=== PATIENT | female | born 1960 | race Caucasian/White ===

== ENCOUNTER 2021-10-06 07:38 | Emergency (ER) | payer MEDICARE, MEDICAID, SELFPAY ==
[2021-10-06 07:47] VITALS: BP 162/83; PULSE 103; RESP 18; O2SAT 99; BMI 20.9
--- NOTE | 2021-10-06 07:52 | XR_ITS ---
WS: [id number] LEFT ANKLE: 3 VIEW(S) TECHNIQUE: AP, oblique(s) and lateral. HISTORY: ankle pain, fell 2 weeks ago. COMPARISON: None available. Healing fracture in the distal fibular diaphysis. Nondisplaced fracture with a moderate amount of neris thomas formation developing. No significant displacement. No joint effusion or widening of the ankle mortise. Moderate degenerative changes at the ankle joint. Hypertrophic osteophytes at the medial and lateral joint compartments with narrowing of the joint space. There is also narrowing of the subtalar joint a nd mild pes planus deformity. XR/XR ankle LT min 3V* [id number] IMPRESSION: 1. Healing nondisplaced oblique fracture distal fibular diaphysis. 2. 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
[2021-10-06 08:05] VITALS: BP 162/83; O2SAT 97
[2021-10-06 08:45] VITALS: BP 137/77; PULSE 102; RESP 20; O2SAT 94
--- NOTE | 2021-10-06 08:47 | W.ED.EXTPRO ---
HPI - Extremity Problem General: Chief complaint: Extremity Injury, Lower Stated complaint: Left Ankle injury Time Seen by Provider: 10/06/21 07:40 Source: patient Mode of arrival: ambulatory Limitations: no limitations History of Present Illness: 59-year-old female presents emergency room complaining of left lateral ankle pain. Evidently she hurt her self at least 2 weeks ago or more. She has been ambulatory on it since she states a significant amount of pain. She has not seen anyone else for it. No other injuries. Patient denies previous injury to this ankle. MD Complaint: extremity pain Onset (ago): week(s) (2) Pain Consistency: constant Location: left and lower extremity (Ankle) Quality: sharp Radiation: distal Relieving factors: immobilization and rest Exacerbating factors: weight bearing and walking Associated symptoms: Reports chest pain (Chronically); Deny arthralgias, fever(s), myalgias, rash or short of breath Review of Systems General: Reports: Other (Verbose review of systems on chronic issues) Const: Denies: fever(s) or chills ENMT: Denies: throat pain, ear or mastoid pain, nasal discharge or nasal congestion Card: Reports: chest pain (Chronically) and palpitations Resp: Reports: dyspnea (Chronic); Denies: productive cough or non-productive cough GI: Denies: abdominal pain, nausea, vomiting, hematemesis, coffee ground emesis, diarrhea, constipation, bloating, hematochezia or melena : Denies: flank pain, difficulty voiding, dysuria, urinary frequency or urinary urgency Musc: Reports: neck pain, back pain, extremity pain and joint pain Skin/Breast: Denies: rash or pruritus [facility] ED PFSH: Medical History (Updated 10/13/21 @ 15:02 by Zheng Heredia DO) Patient denies significant medical history Surgical History (Updated 10/13/21 @ 15:02 by Zheng Heredia DO) No pertinent past surgical history Physical Exam Const: GENERAL APPEARANCE: cooperative and comfortable ORIENTATION/CONSCIOUSNESS: Yes awake, Yes oriented to person, Yes oriented to place and Yes oriented to time HENMT: COMMON NORMALS: normocephalic, atraumatic and hearing grossly normal bilaterally HEAD & SCALP: normocephalic and atraumatic Resp: COMMON NORMALS: normal respiratory effort, No retractions, No use of accessory muscles and clear to auscultation bilaterally AUSCULTATION: clear to auscultation bilaterally Cardio: COMMON NORMALS: regular rate, regular rhythm and No murmurs present (Cardio) RATE: regular rate RHYTHM: regular rhythm GI: COMMON NORMALS: Soft to palpation and No hepatosplenomegaly present AUSCULTATION: Yes normoactive bowel sounds PALPATION: Yes Soft to palpation, No Tenderness to palpation present (GI), No Guarding due to palpation present (GI) and Yes No hepatosplenomegaly present Extremity: OTHER: Slight ecchymosis and swelling of the lateral malleolus left ankle Neuro: SENSORIUM/ORIENTATION: Yes oriented to person, Yes oriented to place and Yes oriented to time Skin: COMMON NORMALS: no rashes or lesions noted GENERAL SKIN EXAM: no rashes or lesions noted Course Vital Signs: Vital signs: Vital Signs Pulse Rate 102 H 10/06/21 08:45 Respiratory Rate 20 H 10/06/21 08:45 Blood Pressure 137/77 10/06/21 08:45 Pulse Oximetry 94 10/06/21 08:45 MDM - Extremity (Nontraumatic) Medical Decision Making Left distal fibula fracture. Posterior splint nonweightbearing pain medications referral to orthopedics Lab Data I reviewed the patient's lab results. Labs and imaging reviewed Radiology Impressions Ankle X-Ray 10/06/21 07:52 IMPRESSION: 1. Healing nondisplaced oblique fracture distal fibular diaphysis. 2. 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 Discharge Plan Discharge Patient Disposition: Home Clinical Impression: Fracture of distal end of left fibula with routine healing Condition: Stable Prescriptions: New hydrocodone-acetaminophen 5-325 mg tablet 1 tab PO Q6H PRN (Reason: pain) Qty: 10 0RF Discharge Orders: Discharge ED (Routine); Ordered 10/06/21 Ordered By: Zheng Heredia Patient Instructions: Opioid Safety Activity Restrictions/Additional Instructions: This management will make referral to orthopedics and contact you the time for the appointment. Coding Level of Care Code ED Physiotherapy Assistant for Shanita Fwlamonte Exam Detailed
--- NOTE | 2021-10-06 14:24 | DCPLANNER ---
brood station manager had message to speak with patient about getting established with a primary care physician. brood station manager called patient, unable to speak with patient, a voicemail was left for patient to return case mgr phone call.
== END 2021-10-06 08:48 | disposition home or self-care (01) ==
PROVIDERS: Emergency Provider Family Medicine
DX: S82.435A Nondisplaced oblique fracture of shaft of left fibula, initial encounter for closed fracture (principal); X58.XXXA Exposure to other specified factors, initial encounter
CPT/HCPCS: 29515; 73610; 99283; E0114

== ENCOUNTER 2021-11-24 22:23 | Emergency (ER) | payer MEDICARE, MEDICAID, SELFPAY ==
[2021-11-24 22:29] VITALS: BP 175/84; PULSE 92; TEMP 37.1; O2SAT 99; BMI 23.5
--- NOTE | 2021-11-24 23:02 | CTR_ITS ---
PROCEDURE INFORMATION: Exam: CT Abdomen And Pelvis Without Contrast Exam date and time: 11/24/2021 11:20 PM Age: 61 years old Clinical indication: Bloating; Abdominal pain; Generalized; Prior surgery; Surgery type: Hysterectomy; Patient HX: C/O diffuse abd pain with distention. History of sbo. ; Additional info: Abd pain distension TECHNIQUE: Imaging protocol: Computed tomography of the abdomen and pelvis without contrast. Radiation optimization: All CT scans at this facility use at least one of these dose optimization techniques: automated exposure control; mA and/or kV adjustment per patient size (includes targeted exams where dose is matched to clinical indication); or iterative reconstruction. COMPARISON: No relevant prior studies available. RADIATION DOSE METRICS: Total DLP (mGy-cm): 984.75 FINDINGS: Liver: Normal. No mass. Gallbladder and bile ducts: Normal. No calcified stones. No ductal dilation. Pancreas: Normal. No ductal dilation. Spleen: Normal. No splenomegaly. Adrenal glands: Normal. No mass. Kidneys and ureters: Normal. No hydronephrosis. Stomach and bowel: Diverticulosis coli. Negative for bowel obstruction. Negative for bowel perforation. Moderate colonic fecal volume. No focal bowel wall inflammatory change. Appendix: Normal appendix. Intraperitoneal space: Unremarkable. No free air. No significant fluid collection. Vasculature: Diffuse abdominal aorta atherosclerosis. Negative for aneurysm. Lymph nodes: Unremarkable. No enlarged lymph nodes. Urinary bladder: Unremarkable as visualized. Reproductive: Hysterectomy. Bones/joints: Unremarkable. No acute fracture. Soft tissues: Unremarkable. CT/CT abdomen pelvis con [id number] IMPRESSION: Negative for acute abdominopelvic pathology.
[2021-11-24 23:23] LABS: Basophils % 0.3 %; Eosinophils # 0.1 10^3/uL (0.0-0.8); Eosinophils % 1.3 %; Hematocrit 34.2 % (37.0-47.0); Hemoglobin 11.4 g/dL (11.5-15.3); Lymphocytes % 34.5 %; Mean Corpuscular HGB Conc 33.3 g/dL (30.0-36.0); Mean Corpuscular Volume 99.1 fl (81-99); Monocytes # 0.9 10^3/uL (0.2-0.9); Monocytes % 10.6 %; Neutrophils # 4.54 10^3/uL (1.8-7.7); Nucleated Red Blood Cells % 0 %; Platelet Count 355 10^3/cmm (130-400); Red Blood Count 3.45 10^6/uL (4.1-5.3); Red Cell Distribution Width 11.9 % (12.1-15.1); White Blood Count 8.6 10^3/uL (4.0-10.0)
[2021-11-24 23:32] LABS: Alanine Aminotransferase 11 U/L (0-33); Albumin Level 4.4 g/dL (3.5-5.2); Alkaline Phosphatase 95 IU/L (35-105); Anion Gap 14.3 (5-19); Aspartate Amino Transferase 14 U/L (0-32); Blood Urea Nitrogen 6 mg/dL (8-23); Calcium 9.1 mg/dL (8.5-10.5); Carbon Dioxide 25 mmol/L (22-29); Chloride 100 mmol/L (98-107); Globulin 2.7 g/dL (1.3-4.6); Glomerular Filtration Rate 84.8 mL/min (90-130); Glucose 82 mg/dL (65-115); Lipase 57 U/L (13-60); Osmolality Calculated 279 mOsm/kg (285-295); Potassium 3.3 mmol/L (3.5-5.1); Sodium 136 mmol/L (136-145); Total Bilirubin 0.2 mg/dL (0.15-1.2); Total Protein 7.1 g/dL (6.6-8.7)
[2021-11-25 00:05] VITALS: BP 165/96; PULSE 94; RESP 20; O2SAT 98
[2021-11-25] MEDS: morphine 4 mg/mL SDV 1 mL IVP ×2 (00:05→01:43)
[2021-11-25] MEDS: sodium chloride 0.9% 1,000 ML 999 ML IV (00:05)
[2021-11-25] MEDS: ondansetron 2 mg/ML SDV 2 mL 4 MG IVP (00:06)
[2021-11-25 00:53] LABS: Add Urine Microscopic? NO; Charge for UA Resulting for Rev
[2021-11-25 00:55] LABS: Bilirubin Urine Neg (Negative); Blood Urine Neg (Negative); Glucose Urine UA Norm (Normal); Ketones Urine Negative (Negative); Leukocyte Esterase Urine Negative (Negative); Nitrate Urine Negative (Negative); Protein Urine Neg (Negative); Specific Gravity, Urine 1.005 (1.005-1.030); Urine Appearance Clear (CLEAR); Urine Color Straw (Yellow); Urobilinogen Urine Norm (Negative); pH Urine 6 (5-7)
[2021-11-25 01:43] VITALS: RESP 18
[2021-11-25] MEDS: magnesium citrate Btl 296 mL PO (01:52)
[2021-11-25 02:08] VITALS: BP 121/60; PULSE 74; RESP 18; TEMP 36.7; O2SAT 97
--- NOTE | 2021-11-25 05:08 | W.ED.ABDPA2 ---
HPI - Abdominal Pain General: Chief Complaint: Abdominal Pain Stated Complaint: ABD PAIN Time Seen by Provider: 11/24/21 22:38 Source: patient History of Present Illness: 61-year-old female with a history of chronic abdominal pain. She presents with abdominal pain and distention. She noted at 1 point that fentanyl seems to really help her pain when she gets like this. She has had feces in times past. She denies significant vomiting, denies fever, denies significant diarrhea. MD elicited complaint: abdominal pain Pertinent past history: constipation Onset (ago): month(s) Pain Consistency: intermittent Location: Diffuse Severity: moderate Quality: cramping, stabbing and aching Associated Symptoms: Reports bloating, constipation, nausea and poor appetite; Denies dysuria, fever(s), melena and vomiting Review of Systems Const: Denies: fever(s) ENMT: Denies: throat pain Card: Denies: chest pain Resp: Denies: dyspnea or productive cough GI: Reports: nausea, constipation and bloating; Denies: vomiting or melena : Denies: dysuria PFSH ED PFSH: Medical History (Updated 11/25/21 @ 01:27 by Celestino Fish DO) Patient denies significant medical history Surgical History No pertinent past surgical history Physical Exam Const: COMMON NORMALS: no acute distress GENERAL APPEARANCE: cooperative HENMT: COMMON NORMALS: normocephalic, atraumatic and Normal external nose present HEAD & SCALP: normocephalic and atraumatic NOSE: Normal external nose present and Normal nares present Eye: COMMON NORMALS: Equal, round and reactive pupils present and EOMs intact bilaterally PUPIL: Yes Equal, round and reactive pupils present Neck/C-Spine: GENERAL: Yes trachea midline Chest: COMMONS NORMALS: normal inspection of the chest Resp: COMMON NORMALS: normal respiratory effort, No use of accessory muscles and clear to auscultation bilaterally AUSCULTATION: clear to auscultation bilaterally Cardio: COMMON NORMALS: regular rate and regular rhythm RATE: regular rate RHYTHM: regular rhythm GI: COMMON NORMALS: Soft to palpation INSPECTION: Yes abdominal distension (mild) PALPATION: Yes Soft to palpation, Yes Tenderness to palpation present (GI) (diffuse) and No Guarding due to palpation present (GI) Extremity: COMMON NORMALS: no pedal edema Neuro: JOSE DE JESUS COMA SCALE: document GCS findings [place] coma scale eye opening: Spontaneous [place] coma scale verbal response: Orientated [place] coma scale motor response: Obey commands Jose De Jesus coma scale total score: 15 Course Vital Signs: Vital signs: Vital Signs Temperature 98.1 F 11/25/21 02:08 Pulse Rate 74 11/25/21 02:08 Respiratory Rate 18 11/25/21 02:08 Blood Pressure 121/60 11/25/21 02:08 Pulse Oximetry 97 11/25/21 02:08 MDM - Abdominal Pain Medical Decision Making No fever, no leukocytosis. Hemoglobin is 11.4. Other labs are benign. CT is negative for any acute abdominal pelvic pathology. She does have an increased fecal load. She will be prescribed laxative Lab Data : 11/24/21 22:50 11/24/21 22:50 Labs/Radiology: Radiology Impressions Abdomen/Pelvis CT 11/24/21 23:02 IMPRESSION: Negative for acute abdominopelvic pathology. Laboratory Results WBC 8.6 10^3/uL (4.0-10.0) 11/24/21 22:50 RBC 3.45 10^6/uL (4.1-5.3) L 11/24/21 22:50 Hgb 11.4 g/dL (11.5-15.3) L 11/24/21 22:50 Hct 34.2 % (37.0-47.0) L 11/24/21 22:50 MCV 99.1 fl (81-99) H 11/24/21 22:50 MCH 33.0 pg (28.0-34.0) 11/24/21 22:50 MCHC 33.3 g/dL (30.0-36.0) 11/24/21 22:50 RDW 11.9 % (12.1-15.1) L 11/24/21 22:50 Plt Count 355 10^3/cmm (130-400) 11/24/21 22:50 MPV 10.0 fL (7.4-10.4) 11/24/21 22:50 Neut % (Auto) 53.0 % 11/24/21 22:50 Lymph % (Auto) 34.5 % 11/24/21 22:50 Robertson % (Auto) 10.6 % 11/24/21 22:50 Eos % (Auto) 1.3 % 11/24/21 22:50 Baso % (Auto) 0.3 % 11/24/21 22:50 Neut # (Auto) 4.54 10^3/uL (1.8-7.7) 11/24/21 22:50 Lymph # (Auto) 3.0 10^3/uL (0.8-4.8) 11/24/21 22:50 Robertson # (Auto) 0.9 10^3/uL (0.2-0.9) 11/24/21 22:50 Eos # (Auto) 0.1 10^3/uL (0.0-0.8) 11/24/21 22:50 Baso # (Auto) 0.0 10^3/uL (0.0-0.1) 11/24/21 22:50 Nucleated RBC % (auto) 0 % 11/24/21 22:50 Nucleated RBCs # 0.0 /100WBC 11/24/21 22:50 Sodium 136 mmol/L (136-145) 11/24/21 22:50 Potassium 3.3 mmol/L (3.5-5.1) L 11/24/21 22:50 Chloride 100 mmol/L (98-107) 11/24/21 22:50 Carbon Dioxide 25 mmol/L (22-29) 11/24/21 22:50 Anion Gap 14.3 (5-19) 11/24/21 22:50 BUN 6 mg/dL (8-23) L 11/24/21 22:50 Creatinine 0.7 mg/dL (0.5-0.9) 11/24/21 22:50 GFR Calculation 84.8 mL/min (90-130) L 11/24/21 22:50 Glucose 82 mg/dL (65-115) 11/24/21 22:50 Calculated Osmolality 279 mOsm/kg (285-295) L 11/24/21 22:50 Calcium 9.1 mg/dL (8.5-10.5) 11/24/21 22:50 Total Bilirubin 0.2 mg/dL (0.15-1.2) 11/24/21 22:50 AST 14 U/L (0-32) 11/24/21 22:50 ALT 11 U/L (0-33) 11/24/21 22:50 Alkaline Phosphatase 95 IU/L (35-105) 11/24/21 22:50 C-Reactive Protein 3.0 mg/L (0.0-4.9) 11/24/21 22:50 Total Protein 7.1 g/dL (6.6-8.7) 11/24/21 22:50 Albumin 4.4 g/dL (3.5-5.2) 11/24/21 22:50 Globulin 2.7 g/dL (1.3-4.6) 11/24/21 22:50 Lipase 57 U/L (13-60) 11/24/21 22:50 Urine Color Straw (Yellow) 11/25/21 00:30 Urine Appearance Clear (CLEAR) 11/25/21 00:30 Urine pH 6 (5-7) 11/25/21 00:30 Ur Specific [place] 1.005 (1.005-1.030) 11/25/21 00:30 Urine Protein Neg (Negative) 11/25/21 00:30 Urine Glucose (UA) Norm (Normal) 11/25/21 00:30 Urine Ketones Negative (Negative) 11/25/21 00:30 Urine Blood Neg (Negative) 11/25/21 00:30 Urine Nitrate Negative (Negative) 11/25/21 00:30 Urine Bilirubin Neg (Negative) 11/25/21 00:30 Urine Urobilinogen Norm mg/dL (Negative) 11/25/21 00:30 Ur Leukocyte Esterase Negative (Negative) 11/25/21 00:30 Discharge Plan Discharge Patient Disposition: Home Clinical Impression: Constipation Abdominal pain Qualifiers: Abdominal location: generalized Qualified Code(s): R10.84 - Generalized abdominal pain Condition: Stable Prescriptions: Discontinued hydrocodone-acetaminophen 5-325 mg tablet 1 tab PO Q6H PRN (Reason: pain) Qty: 10 0RF Discharge Orders: Discharge ED (Routine); Ordered 11/25/21 Ordered By: Celestino Fish Patient Instructions: Constipation (ED), Abdominal Pain (ED), Opioid Safety Activity Restrictions/Additional Instructions: Take the medication you were dispensed from the ER. Return for fever, vomiting liquids, other concerning symptoms. Coding Level of Care Code ED Automotive Design Layout Drafter for Shanita Danielle
--- NOTE | 2021-12-22 16:44 | DCPLANNER ---
late entry - patient case coordinator had message to speak with patient about getting established with a primary care physician. airport operations duty manager unable to speak with patient at this time.
== END 2021-11-25 02:10 | disposition home or self-care (01) ==
PROVIDERS: Emergency Provider Emergency Medicine
DX: R10.84 Generalized abdominal pain (principal); K59.00 Constipation, unspecified
CPT/HCPCS: 74176; 80053; 81003; 83690; 85025; 86140; 96361; 96374; 96375; 96376; 99284; J2270; J2405; J7030

== ENCOUNTER 2021-12-26 12:27 | Emergency (ER) | payer MEDICARE, SELFPAY ==
[2021-12-26 12:52] VITALS: BP 118/62; PULSE 91; RESP 16; TEMP 36.7; O2SAT 91
--- NOTE | 2021-12-26 13:14 | PC.PHAR ---
pt unable to verify medications-medications entered are meds that [facility] states they have filled for the pt recently-[facility] states the pt picked up all medications-notes are made in the pharmacy comments with last fill dates and d/s
--- NOTE | 2021-12-26 13:15 | XR_ITS ---
WS: [id number] XR chest 1V portable [id number] REASON FOR EXAM: dyspnea/cough FINDINGS: Calcification of the thoracic aorta without aneurysmal dilatation. Normal heart size. Calcified granulomatous disease bilaterally. Flattening of the hemidiaphragms and mild prominence of the interstitium throughout both lungs. Compared to the examination of 12/25/2021 there is an area of atelectasis in the left lung base. The l ungs are otherwise unchanged compared to the previous study. Again is noted the right ventricular fracture of unknown chronicity. XR/XR chest 1V portable [id number] IMPRESSION: Interval atelectasis in the left lower lung with no other interval change chayo red to 12/25/2021.
--- NOTE | 2021-12-26 13:15 | CT_ITS ---
WS: [id number] CT HEAD TECHNIQUE: Noncontrast CT of the head obtained from the skullbase to the vertex. CLINICAL INFORMATION: AMS COMPARISON: December 25, 2021 DLP: 1189.[address] scans at [facility] use at least one of these dose optimization techniques: automated e xposure control; mA and/or kV adjustment per patient size (includes targeted exams where dose is matc hed to clinical indication); or iterative reconstruction. FINDINGS: No evidence of intracranial hemorrhage or mass effect. Ventricular system and basal cisterns are peres nt. Mild small vessel changes with mild parenchymal volume loss. No extra-axial fluid collections. No evidence of mass or mass effect. Mild mucosal thickening ethmoid air cells. Mastoid air cells well aerated. CT/CT head wo con* [id number] IMPRESSION: 1. No evidence of intracranial hemorrhage or mass effect. 2. Mild small vessel changes. Mild parenchymal volume loss. 3. No acute intracranial findings.
[2021-12-26 14:54] LABS: Basophils % 0.3 %; Eosinophils # 0.2 10^3/uL (0.0-0.8); Eosinophils % 2.8 %; Hematocrit 31.1 % (37.0-47.0); Lymphocytes # 1.8 10^3/uL (0.8-4.8); Lymphocytes % 22.7 %; Mean Corpuscular HGB Conc 32.2 g/dL (30.0-36.0); Mean Corpuscular Hemoglobin 33.8 pg (28.0-34.0); Mean Corpuscular Volume 105.1 fl (81-99); Mean Platelet Volume 8.8 fL (7.4-10.4); Monocytes % 12.5 %; Neutrophils % 61.3 %; Nucleated Red Blood Cells % 0 %; Platelet Count 304 10^3/cmm (130-400); Red Blood Count 2.96 10^6/uL (4.1-5.3); Red Cell Distribution Width 12.4 % (12.1-15.1)
--- NOTE | 2021-12-26 14:56 | ED_ITS ---
HPI - Altered Mental Status General: Chief Complaint: Altered Mental Status Stated Complaint: AMS Time Seen by Provider: 12/26/21 13:13 Source: patient Mode of arrival: ambulatory Limitations: no limitations History of Present Illness: 59-year-old female presents to the emergency room with altered mental status. EMS was called to [facility] out reach for altered mental status. On arrival she is lethargic but was eating. When I came to see her she is awake and answers questions. Her glucose on their arrival there was 69 and I gave her some oral glucose increased to 130. When I came to see her s he is still somewhat lethargic she tells me she took Benadryl this afternoon to help her sleep she cannot tell me how much he took. She denies use of any drugs or alcohol. MD complaint: altered mental status Onset (ago): unknown Severity: moderate Associated symptoms: Deny auditory hallucinations, visual hallucinations, delusions or racing thoughts Treatments prior to arrival: glucose Review of Systems Const: Denies: fever(s), chills, body aches, change in appetite, fatigue or malaise ENMT: Denies: throat pain, ear or mastoid pain, nasal discharge or nasal congestion Card: Denies: chest pain, edema, dyspnea on exertion or orthopnea Resp: Denies: dyspnea, productive cough or non-productive cough GI: Denies: abdominal pain, nausea, vomiting, hematemesis, coffee ground emesis, diarrhea, constipation, bloating, hematochezia or melena : Denies: flank pain, difficulty voiding, dysuria, urinary frequency or urinary urgency Skin/Breast: Denies: rash or pruritus Psych: Denies: visual hallucinations or auditory hallucinations [facility] ED PFSH: Medical History Patient denies significant medical history Surgical History No pertinent past surgical history Social History Smoking and tobacco status: unknown if ever smoked Alcohol intake: unknown Physical Exam Const: COMMON NORMALS: no acute distress and average body habitus GENERAL APPEARANCE: lethargic NUTRITIONAL APPEARANCE: obese ORIENTATION/CONSCIOUSNESS: Yes awake and Yes lethargic HENMT: COMMON NORMALS: normocephalic, atraumatic, external ears normal, TM's normal bilaterally and Normal external nose present HEAD & SCALP: normal to inspection, normocephalic and atraumatic FACE & SINUS: normal facial exam NOSE: Normal external nose present and Normal nares present GENERAL EAR: hearing grossly impaired EXTERNAL EAR: Yes external ears normal and Yes external ear abnormal TYMPANIC MEMBRANE: TM's normal bilaterally MOUTH: Normal oral and palatal mucosa present, lip normal and tongue normal Eye: COMMON NORMALS: Equal, round and reactive pupils present, EOMs intact bilaterally and conjunctivae normal CONJUNCTIVA: Yes conjunctivae normal PUPIL: Yes Equal, round and reactive pupils present and Yes Pupil accommodation reflex normal Neck/C-Spine: COMMON NORMALS: full ROM, no lymphadenopathy, supple and no meningeal signs Resp: COMMON NORMALS: clear to auscultation bilaterally EFFORT & INSPECTION: Yes able to speak in complete sentences AUSCULTATION: clear to auscultation bilaterally Cardio: COMMON NORMALS: regular rate and regular rhythm RATE: regular rate RHYTHM: regular rhythm GI: COMMON NORMALS: Normal to inspection, nondistended, normoactive bowel sounds present, Soft to palpation, non-tender and No hepatosplenomegaly present PALPATION: Yes Soft to palpation, No Guarding due to palpation present (GI) and Yes No hepatosplenomegaly present : COMMON NORMALS: Yes no CVA tenderness BLADDER/KIDNEY EXAM: Yes no CVA tenderness Back/Pelvis: COMMON NORMALS: no CVA tenderness Neuro: SENSORIUM/ORIENTATION: Yes lethargic MENINGEAL SIGNS: Yes no meningeal signs Psych: THOUGHT CONTENT: No delusions Course Vital Signs: Vital signs: Vital Signs Temperature 98.0 F 12/26/21 12:52 Pulse Rate 108 H 12/26/21 16:35 Respiratory Rate 16 12/26/21 16:35 Blood Pressure 110/78 12/26/21 16:35 Pulse Oximetry 97 12/26/21 16:35 MDM - Altered Mental Status Medical Decision Making Positive for benzodiazepines and narcotics. Patient admits to taking benzos as well as taking Benadryl along with it. She is awake and alert at this point is able to ambulate we will go ahead and discharge home encouraged her not to take any [id number] or nonprescribed medications particularly when she is taking prescribed prescription meds. Medical Records I reviewed the patient's medical records. Lab Data I reviewed the patient's lab results. : 12/26/21 14:35 12/26/21 14:35 Radiology Impressions Chest X-Ray 12/26/21 13:15 IMPRESSION: Interval atelectasis in the left lower lung with no other interval change compared to 12/25/2021. Head CT 12/26/21 13:15 IMPRESSION: 1. No evidence of intracranial hemorrhage or mass effect. 2. Mild small vessel changes. Mild parenchymal volume loss. 3. No acute intracranial findings. Laboratory Results WBC 8.0 10^3/uL (4.0-10.0) 12/26/21 14:35 RBC 2.96 10^6/uL (4.1-5.3) L 12/26/21 14:35 Hgb 10.0 g/dL (11.5-15.3) L 12/26/21 14:35 Hct 31.1 % (37.0-47.0) L 12/26/21 14:35 MCV 105.1 fl (81-99) H D 12/26/21 14:35 MCH 33.8 pg (28.0-34.0) 12/26/21 14:35 MCHC 32.2 g/dL (30.0-36.0) D 12/26/21 14:35 RDW 12.4 % (12.1-15.1) 12/26/21 14:35 Plt Count 304 10^3/cmm (130-400) 12/26/21 14:35 MPV 8.8 fL (7.4-10.4) 12/26/21 14:35 Neut % (Auto) 61.3 % 12/26/21 14:35 Lymph % (Auto) 22.7 % 12/26/21 14:35 [place] % (Auto) 12.5 % 12/26/21 14:35 Eos % (Auto) 2.8 % 12/26/21 14:35 Baso % (Auto) 0.3 % 12/26/21 14:35 Neut # (Auto) 4.90 10^3/uL (1.8-7.7) 12/26/21 14:35 Lymph # (Auto) 1.8 10^3/uL (0.8-4.8) 12/26/21 14:35 [place] # (Auto) 1.0 10^3/uL (0.2-0.9) H 12/26/21 14:35 Eos # (Auto) 0.2 10^3/uL (0.0-0.8) 12/26/21 14:35 Baso # (Auto) 0.0 10^3/uL (0.0-0.1) 12/26/21 14:35 Nucleated RBC % (auto) 0 % 12/26/21 14:35 Nucleated RBCs # 0.0 /100WBC 12/26/21 14:35 Sodium 135 mmol/L (136-145) L 12/26/21 14:35 Potassium 4.1 mmol/L (3.5-5.1) 12/26/21 14:35 Chloride 97 mmol/L (98-107) L 12/26/21 14:35 Carbon Dioxide 30 mmol/L (22-29) H 12/26/21 14:35 Anion Gap 12.1 (5-19) 12/26/21 14:35 BUN 11 mg/dL (8-23) 12/26/21 14:35 Creatinine 0.6 mg/dL (0.5-0.9) 12/26/21 14:35 GFR Calculation 101.3 mL/min (90-130) 12/26/21 14:35 Glucose 72 mg/dL (65-115) 12/26/21 14:35 Calculated Osmolality 278 mOsm/kg (285-295) L 12/26/21 14:35 Lactic Acid 1.3 mmol/L (0.5-2.2) 12/26/21 14:35 Calcium 8.8 mg/dL (8.5-10.5) 12/26/21 14:35 Total Bilirubin 0.2 mg/dL (0.15-1.2) 12/26/21 14:35 AST 20 U/L (0-32) 12/26/21 14:35 ALT 15 U/L (0-33) 12/26/21 14:35 Alkaline Phosphatase 89 IU/L (35-105) 12/26/21 14:35 Total Protein 6.4 g/dL (6.6-8.7) L 12/26/21 14:35 Albumin 4.1 g/dL (3.5-5.2) 12/26/21 14:35 Globulin 2.3 g/dL (1.3-4.6) 12/26/21 14:35 Urine Color Yellow (Yellow) 12/26/21 14:50 Urine Appearance Clear (CLEAR) 12/26/21 14:50 Urine pH 6 (5-7) 12/26/21 14:50 Ur Specific [place] 1.010 (1.005-1.030) 12/26/21 14:50 Urine Protein Neg (Negative) 12/26/21 14:50 Urine Glucose (UA) Norm (Normal) 12/26/21 14:50 Urine Ketones Negative (Negative) 12/26/21 14:50 Urine Blood Neg (Negative) 12/26/21 14:50 Urine Nitrate Negative (Negative) 12/26/21 14:50 Urine Bilirubin Neg (Negative) 12/26/21 14:50 Urine Urobilinogen Norm mg/dL (Negative) 12/26/21 14:50 Ur Leukocyte Esterase Negative (Negative) 12/26/21 14:50 Urine Opiates Screen Positive ng/mL (Negative) H 12/26/21 14:50 Ur Barbiturates Screen Negative ng/mL (Negative) 12/26/21 14:50 Ur Phencyclidine Scrn Negative ng/mL (Negative) 12/26/21 14:50 Ur Amphetamines Screen Negative ng/mL (Negative) 12/26/21 14:50 U Benzodiazepines Scrn Positive ng/mL (Negative) H 12/26/21 14:50 Urine Cocaine Screen Negative ng/mL (Negative) 12/26/21 14:50 U Marijuana (THC) Screen Negative ng/mL (Negative) 12/26/21 14:50 Ethyl Alcohol < 10 mg/dL (0-10) 12/26/21 14:35 Serum Ketones Negative (Negative) 12/26/21 14:35 Discharge Plan Discharge Patient Disposition: Home Clinical Impression: Clavicle fracture, Fall, Medication side effects Condition: Stable Prescriptions: No Action cyclobenzaprine 10 mg tablet 10 mg PO BID 0RF prednisone 10 mg tablet 10 mg PO DAILY 0RF alprazolam 1 mg tablet 1 mg PO BID 0RF gabapentin 400 mg capsule 400 mg PO TID 0RF omeprazole 40 mg capsule,delayed release(DR/EC) 40 mg PO DAILY 0RF quetiapine 100 mg tablet 100 mg PO BID 0RF dicyclomine 20 mg tablet 20 mg PO BID 0RF promethazine 25 mg tablet 25 mg PO BID 0RF acetaminophen-codeine 300-60 mg tablet 1 tab PO Q6H PRN (Reason: Pain) 0RF albuterol sulfate 90 mcg/actuation HFA aerosol inhaler 1 puff INHALATION Q4H 0RF oxybutynin chloride 5 mg tablet 5 mg PO BEDTIME 0RF metoclopramide HCl 10 mg tablet 10 mg PO QID 0RF Rx Instructions: before meals and hs memantine 5 mg tablet 5 mg PO BID 0RF Spiriva with HandiHaler 18 mcg capsule, w/inhalation device 1 cap INHALATION DAILY 0RF duloxetine 30 mg capsule,delayed release(DR/EC) 30 mg PO BEDTIME 0RF losartan-hydrochlorothiazide 100-12.5 mg tablet 1 tab PO DAILY 0RF Discharge Orders: Discharge ED (Routine); Ordered 12/26/21 Ordered By: Zheng Heredia Patient Instructions: Opioid Safety Activity Restrictions/Additional Instructions: Take medications previously prescribed. Avoid taking medicines not prescribed or [id number] medications. Coding Level of Care Code ED Hot Top Liner for Shanita Fwlamonte Exam Comprehensive
[2021-12-26 14:58] LABS: Add Urine Microscopic? NO; Charge for UA Resulting for Rev
[2021-12-26 15:02] LABS: Urine Appearance Clear (CLEAR); Urine Color Yellow (Yellow); pH Urine 6 (5-7)
[2021-12-26 15:02] LABS: Ketone (Acetest) Serum Negative (Negative)
[2021-12-26 15:03] LABS: Lactic Sepsis W/Reflex 1.3 mmol/L (0.5-2.2)
[2021-12-26 15:03] LABS: Bilirubin Urine Neg (Negative); Blood Urine Neg (Negative); Glucose Urine UA Norm (Normal); Ketones Urine Negative (Negative); Leukocyte Esterase Urine Negative (Negative); Nitrate Urine Negative (Negative); Protein Urine Neg (Negative); Urobilinogen Urine Norm (Negative)
[2021-12-26 15:11] LABS: Amphetamines Screen Urine Negative (Negative); Barbiturates Screen Urine Negative (Negative); Benzodiazepines Screen Urine Positive (Negative); Cocaine Screen Urine Negative (Negative); Opiate Screen Urine Positive (Negative); PCP Screen Urine Negative (Negative); THC Screen Urine Negative (Negative)
[2021-12-26 15:15] LABS: Alanine Aminotransferase 15 U/L (0-33); Albumin Level 4.1 g/dL (3.5-5.2); Alkaline Phosphatase 89 IU/L (35-105); Anion Gap 12.1 (5-19); Aspartate Amino Transferase 20 U/L (0-32); Blood Urea Nitrogen 11 mg/dL (8-23); Calcium 8.8 mg/dL (8.5-10.5); Carbon Dioxide 30 mmol/L (22-29); Chloride 97 mmol/L (98-107); Globulin 2.3 g/dL (1.3-4.6); Glomerular Filtration Rate 101.3 mL/min (90-130); Glucose 72 mg/dL (65-115); Osmolality Calculated 278 mOsm/kg (285-295); Potassium 4.1 mmol/L (3.5-5.1); Sodium 135 mmol/L (136-145); Total Bilirubin 0.2 mg/dL (0.15-1.2); Total Protein 6.4 g/dL (6.6-8.7)
[2021-12-26 15:18] LABS: Alcohol Level < 10 mg/dL (0-10)
[2021-12-26 16:35] VITALS: BP 110/78; PULSE 108; RESP 16; O2SAT 97
== END 2021-12-26 16:36 | disposition home or self-care (01) ==
PROVIDERS: Emergency Provider Family Medicine
DX: T88.7XXA Unspecified adverse effect of drug or medicament, initial encounter (principal); T50.905A Adverse effect of unspecified drugs, medicaments and biological substances, initial encounter; S42.009A Fracture of unspecified part of unspecified clavicle, initial encounter for closed fracture; X58.XXXA Exposure to other specified factors, initial encounter
CPT/HCPCS: 36415; 70450; 71045; 80053; 80306; 80307; 81003; 82009; 83605; 85025; 87040; 87205; 99284

== ENCOUNTER 2021-12-28 07:10 | Inpatient (IN) | payer MEDICARE, SELFPAY ==
[2021-12-28] VITALS (76 sets, daily range): BP systolic 84–145; BP diastolic 48–88; PULSE 79–121; RESP 13–32; TEMP 36.6–37.7; O2SAT 90–99
--- NOTE | 2021-12-28 07:14 | ED_ITS ---
HPI - General Adult General: Stated complaint: AMS Time Seen by Provider: 12/28/21 07:13 PFSH ED PFSH: Medical History Patient denies significant medical history Surgical History No pertinent past surgical history Social History Smoking and tobacco status: unknown if ever smoked Alcohol intake: unknown Discharge Plan Discharge Condition: Stable Prescriptions: No Action cyclobenzaprine 10 mg tablet 10 mg PO BID 0RF prednisone 10 mg tablet 10 mg PO DAILY 0RF alprazolam 1 mg tablet 1 mg PO BID 0RF gabapentin 400 mg capsule 400 mg PO TID 0RF omeprazole 40 mg capsule,delayed release(DR/EC) 40 mg PO DAILY 0RF quetiapine 100 mg tablet 100 mg PO BID 0RF dicyclomine 20 mg tablet 20 mg PO BID 0RF promethazine 25 mg tablet 25 mg PO BID 0RF acetaminophen-codeine 300-60 mg tablet 1 tab PO Q6H PRN (Reason: Pain) 0RF albuterol sulfate 90 mcg/actuation HFA aerosol inhaler 1 puff INHALATION Q4H 0RF oxybutynin chloride 5 mg tablet 5 mg PO BEDTIME 0RF metoclopramide HCl 10 mg tablet 10 mg PO QID 0RF Rx Instructions: before meals and hs memantine 5 mg tablet 5 mg PO BID 0RF Spiriva with HandiHaler 18 mcg capsule, w/inhalation device 1 cap INHALATION DAILY 0RF duloxetine 30 mg capsule,delayed release(DR/EC) 30 mg PO BEDTIME 0RF losartan-hydrochlorothiazide 100-12.5 mg tablet 1 tab PO DAILY 0RF Coding Level of Care Code ED Respiratory Care Faculty for Shanita Danielle
--- NOTE | 2021-12-28 07:17 | XR_ITS ---
WS: [id number] XR chest 1V portable [id number] REASON FOR EXAM: dyspnea/cough FINDINGS: The heart and mediastinum are within normal limits. Extensive reticular interstitial and groundglass infiltrative changes in the right upper and right lo wer lobes. There may be early similar abnormality in the periphery of the left lower lung. In retrospect there may have been early findings in the right lower lung on 12/26/2021. No other new finding or interval change. XR/XR chest 1V portable [id number] IMPRESSION: Development of lung opacities between 718 in the current examination indicative of acute pneumonitis.
--- NOTE | 2021-12-28 07:18 | ECG_ITS ---
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 Measurements Intervals [place] Rate: 99 P: 70 MT: 144 QRS: 73 QRSD: 94 T: 67 QT: 340 QTc: 438 Interpretive Statements SINUS RHYTHM INTERPRETATION BASED ON A DEFAULT AGE OF 40 YEARS Compared to ECG 12/25/2021 23:47:04 No significant changes Electronically Signed On 12-28-2021 21:14:13 CDT by Misha Moe M.D. [id number]
[2021-12-28] MEDS: sodium chloride 0.9% 1,000 ML 999 ML IV (07:25)
--- NOTE | 2021-12-28 07:25 | W.ED.SOB ---
HPI - SOB/Dyspnea General: Chief Complaint: Altered Mental Status Stated Complaint: AMS Time Seen by Provider: 12/28/21 07:13 Source: EMS Mode of arrival: EMS Limitations: altered mental status History of Present Illness: HPI Narrative: 61-year-old female arrives emergency room with altered mental status with a GCS of 6 oxygen saturation of 75%. Patient has abnormal respiratory pattern. Patient is unable to give any significant history. She is found that [facility] home in this condition evidently has been that way all night we do not have a timeframe of last known well. She was seen 2 days ago here with altered mental status secondary to narcotics use and ultimately she was discharged home. Recently patient was seen in the emergency room and fell and had a right distal clavicle fracture head CT at that time was negative Pertinent past history: COPD Onset (ago): unknown Context: recent illness (Recent fall with right distal clavicle fracture) Timing: constant Severity: severe Exacerbating factors: nothing Relieving factors: oxygen (Improved with BiPAP) Known history of: COPD Treatment prior to arrival: oxygen Review of Systems General: Reports: ROS unobtainable due to mental status PFSH ED PFSH: Medical History (Updated 12/28/21 @ 12:42 by Zheng Heredia DO) COPD (chronic obstructive pulmonary disease) Depression with anxiety GERD (gastroesophageal reflux disease) Hypertension Surgical History (Updated 12/28/21 @ 12:42 by Zheng Heredia DO) History of right below knee amputation Social History (Updated 12/28/21 @ 11:16 by Galen Wen MD) Smoking and tobacco status: current every day smoker Alcohol intake: current Physical Exam HENMT: COMMON NORMALS: normocephalic and atraumatic HEAD & SCALP: normocephalic and atraumatic Neck/C-Spine: COMMON NORMALS: no JVD Resp: EFFORT & INSPECTION: Yes abnormal respiratory pattern, Yes decreased respiratory effort, Yes labored and Yes uses accessory muscles AUSCULTATION: rhonchi and wheezes Cardio: COMMON NORMALS: no JVD, regular rhythm and No murmurs present (Cardio) RATE: tachycardic RHYTHM: regular rhythm GI: COMMON NORMALS: Soft to palpation and No hepatosplenomegaly present AUSCULTATION: Yes normoactive bowel sounds PALPATION: Yes Soft to palpation, No Tenderness to palpation present (GI), No Guarding due to palpation present (GI) and Yes No hepatosplenomegaly present Extremity: COMMON NORMALS: capillary refill normal, no clubbing, cyanosis or edema, no calf tenderness and no pedal edema OTHER: Right below the knee amputation Neuro: JEFF COMA SCALE: document GCS findings [place] coma scale eye opening: To sound [place] coma scale verbal response: Sounds Jeff coma scale motor response: Localising Jeff coma scale total score: 10 Skin: COMMON NORMALS: no rashes or lesions noted GENERAL SKIN EXAM: no rashes or lesions noted Course Vital Signs: Vital signs: Vital Signs Temperature 100 F H 12/28/21 08:26 Pulse Rate 97 12/28/21 12:11 Respiratory Rate 20 H 12/28/21 12:11 Blood Pressure 107/65 12/28/21 12:11 Pulse Oximetry 99 12/28/21 12:11 MDM - SOB/Dyspnea Medical Decision Making Patient has been here multiple times last few days several times for altered mental status where it appeared she had ingested medications. However today on arrival she is significantly different from yesterday. Her GCS is significantly decreased she has an obviously abnormal chest x-ray which is a significant change from yesterday. Initially my suspicion was that she had aspirated given the medication uses. However COVID came back positive. I still suspect she may have ingested medications which cause her sedation suspect she may have aspirated during that time and it COVID is just an incidental finding. In either event we will start remdesivir also started on Levaquin and Zosyn. Discussed with Dr. Davidson orders written to admit to the ICU. She was given Narcan immediately after arrival here and did have some improvement in her mentationwhen that was given. Medical Records I reviewed the patient's medical records. Lab Data I reviewed the patient's lab results. : 12/28/21 10:05 12/28/21 11:50 Labs/Radiology: Radiology Impressions Chest X-Ray 12/28/21 07:17 IMPRESSION: Development of lung opacities between 718 in the current examination indicative of acute pneumonitis. Head CT 12/28/21 07:34 IMPRESSION: 1. No evidence of intracranial hemorrhage or mass effect. 2. Mild small vessel changes. Mild parenchymal volume loss. 3. No acute intracranial findings and no changes compared to previous December 26, 2021. Laboratory Results WBC 13.6 10^3/uL (4.0-10.0) H 12/28/21 10:05 RBC 2.64 10^6/uL (4.1-5.3) L 12/28/21 10:05 Hgb 8.9 g/dL (11.5-15.3) L 12/28/21 10:05 Hct 27.7 % (37.0-47.0) L 12/28/21 10:05 MCV 104.9 fl (81-99) H 12/28/21 10:05 MCH 33.7 pg (28.0-34.0) 12/28/21 10:05 MCHC 32.1 g/dL (30.0-36.0) 12/28/21 10:05 RDW 12.6 % (12.1-15.1) 12/28/21 10:05 Plt Count 282 10^3/cmm (130-400) 12/28/21 10:05 MPV 9.8 fL (7.4-10.4) 12/28/21 10:05 Neut % (Auto) 87.0 % 12/28/21 10:05 Lymph % (Auto) 6.5 % 12/28/21 10:05 [place] % (Auto) 5.2 % 12/28/21 10:05 Eos % (Auto) 0.5 % 12/28/21 10:05 Baso % (Auto) 0.1 % 12/28/21 10:05 Neut # (Auto) 11.81 10^3/uL (1.8-7.7) H 12/28/21 10:05 Lymph # (Auto) 0.9 10^3/uL (0.8-4.8) 12/28/21 10:05 [place] # (Auto) 0.7 10^3/uL (0.2-0.9) 12/28/21 10:05 Eos # (Auto) 0.1 10^3/uL (0.0-0.8) 12/28/21 10:05 Baso # (Auto) 0.0 10^3/uL (0.0-0.1) 12/28/21 10:05 Nucleated RBC % (auto) 0 % 12/28/21 10:05 Nucleated RBCs # 0.0 /100WBC 12/28/21 10:05 Specimen Type Arterial 12/28/21 07:20 Sample Site Radial, left 12/28/21 07:20 ABG pH 7.42 (7.35-7.45) 12/28/21 07:20 ABG pCO2 44.8 mmHg (35-45) 12/28/21 07:20 ABG pO2 92.8 mmHg (80.0-100.0) 12/28/21 07:20 ABG HCO3 29.2 mmol/L (22-26) H 12/28/21 07:20 ABG O2 Saturation 97.0 12/28/21 07:20 ABG Base Excess 4.2 mmol/L (-2.0-2.0) H 12/28/21 07:20 Kavon Test Pos 12/28/21 07:20 A-a O2 Gradient 13.0 mmHg (5-10) H 12/28/21 07:20 Hematocrit 29.7 % (37-47) L 12/28/21 07:20 Hgb O2 Saturation 94.3 % (95-100) L 12/28/21 07:20 Carboxyhemoglobin 1.8 %THgb (0.4-20.1) 12/28/21 07:20 Methemoglobin 1.0 % (0.4-1.5) 12/28/21 07:20 Total Hemoglobin 9.7 g/dL (12-16) L 12/28/21 07:20 Sodium 131.0 mmol/L (131-143) 12/28/21 07:20 Potassium 4.1 mmol/L (3.5-5.0) 12/28/21 07:20 Glucose 92.0 mg/dL (70-115) 12/28/21 07:20 Ionized Calcium 1.1 mmol/L (1.1-1.4) 12/28/21 07:20 O2 Delivery Device Bipap 12/28/21 07:20 FiO2 35.0 % 12/28/21 07:20 Residential Remodeling Subcontractor ID Cak 12/28/21 07:20 POC Glucose 99 mg/dL (70-110) 12/28/21 07:25 Lactic Acid 1.0 mmol/L (0.5-2.2) 12/28/21 10:05 Troponin T Baseline 14 ng/L (0-10) H 12/28/21 10:05 Urine Color Yellow (Yellow) 12/28/21 07:44 Urine Appearance Clear (CLEAR) 12/28/21 07:44 Urine pH 6 (5-7) 12/28/21 07:44 Ur Specific [place] 1.005 (1.005-1.030) 12/28/21 07:44 Urine Protein Neg (Negative) 12/28/21 07:44 Urine Glucose (UA) Norm (Normal) 12/28/21 07:44 Urine Ketones Negative (Negative) 12/28/21 07:44 Urine Blood Neg (Negative) 12/28/21 07:44 Urine Nitrate Negative (Negative) 12/28/21 07:44 Urine Bilirubin Neg (Negative) 12/28/21 07:44 Urine Urobilinogen Norm mg/dL (Negative) 12/28/21 07:44 Ur Leukocyte Esterase Negative (Negative) 12/28/21 07:44 Urine Opiates Screen Positive ng/mL (Negative) H 12/28/21 07:44 Ur Barbiturates Screen Negative ng/mL (Negative) 12/28/21 07:44 Ur Phencyclidine Scrn Negative ng/mL (Negative) 12/28/21 07:44 Ur Amphetamines Screen Negative ng/mL (Negative) 12/28/21 07:44 U Benzodiazepines Scrn Positive ng/mL (Negative) H 12/28/21 07:44 Urine Cocaine Screen Negative ng/mL (Negative) 12/28/21 07:44 U Marijuana (THC) Screen Negative ng/mL (Negative) 12/28/21 07:44 Serum Ketones Negative (Negative) 12/28/21 10:05 Coronavirus 229E (PCR) Not detected (NOT DETECT) 12/28/21 07:55 SARS-CoV-2 (PCR) Detected (NOT DETECT) A 12/28/21 07:55 Discharge Plan Discharge Patient Disposition: Admitted As Inpatient Admit Provider: Galen Wen Clinical Impression: Aspiration pneumonitis, COVID-19, History of right below knee amputation, Acute respiratory failure, Acute encephalopathy, Hypertension, Anemia, COPD with acute exacerbation, Clavicle fracture Condition: Stable Coding Level of Care Code ED It Risk And Assurance Manager for Shanita Fwd Exam Comprehensive
[2021-12-28 07:32] LABS: ABG PCO2 44.8 mmHg (35-45); ABG PH Result 7.42 (7.35-7.45); Arterial Blood Gas Hematocrit 29.7 % (37-47); Base Excess ABG 4.2 mmol/L (-2.0-2.0); Blood Gas Allen Test Pos; Blood Gas Operator Identificat CAK; Blood Gas Sample Site Radial, left; Blood Gas Sample Type Arterial; Carboxyhemoglobin 1.8 %THgb (0.4-20.1); HCO3 ABG 29.2 mmol/L (22-26); HGB O2 Sat 94.3 % (95-100); Ionized Calcium Level - ABG 1.1 mmol/L (1.1-1.4); Oxygen Device BIPAP; PO2 ABG 92.8 mmHg (80.0-100.0); Potassium Level - ABG 4.1 mmol/L (3.5-5.0); Total Hemoglobin 9.7 g/dL (12-16)
[2021-12-28 07:32] LABS: Glucose Point of Care 99 mg/dL (70-110)
--- NOTE | 2021-12-28 07:34 | CT_ITS ---
WS: [id number] CT HEAD TECHNIQUE: Noncontrast CT of the head obtained from the skullbase to the vertex. CLINICAL INFORMATION: Altered mental status COMPARISON: December 26, 2021 DLP: 1039.[address] scans at [facility] use at least one of these dose optimization techniques: automated e xposure control; mA and/or kV adjustment per patient size (includes targeted exams where dose is matc hed to clinical indication); or iterative reconstruction. FINDINGS: No evidence of intracranial hemorrhage or mass effect. Ventricular system and basal cisterns are peres nt. Mild small vessel changes with mild parenchymal volume loss. No extra-axial fluid collections. No evidence of mass or mass effect. Paranasal sinuses and mastoid air cells are well aerated. .Normal visualized soft tissues. CT/CT head wo con* [id number] IMPRESSION: 1. No evidence of intracranial hemorrhage or mass effect. 2. Mild small vessel changes. Mild parenchymal volume loss. 3. No acute intracranial findings and no changes compared to previous December 26, 2021.
[2021-12-28 07:52] LABS: Add Urine Microscopic? NO; Charge for UA Resulting for Rev
[2021-12-28] MEDS: levofloxacin-dextrose 5 % 750 MG/150 ML PREMIX 100 MG IV (07:58)
--- NOTE | 2021-12-28 08:26 | PC.PHAR ---
PT SEEN IN ER 12/26/21 FOR AMS- PT RETURNED 12/28/21 FOR AMS AND UNABLE TO VERIFY HER MEDICATIONS- VERIFIED MEDICATIONS USING EXTERNAL MED LIST AND CALLING [facility]
[2021-12-28 08:34] LABS: Bilirubin Urine Neg (Negative); Blood Urine Neg (Negative); Glucose Urine UA Norm (Normal); Ketones Urine Negative (Negative); Leukocyte Esterase Urine Negative (Negative); Nitrate Urine Negative (Negative); Protein Urine Neg (Negative); Specific Gravity, Urine 1.005 (1.005-1.030); Urine Appearance Clear (CLEAR); Urine Color Yellow (Yellow); Urobilinogen Urine Norm (Negative); pH Urine 6 (5-7)
[2021-12-28 08:39] LABS: Amphetamines Screen Urine Negative (Negative); Barbiturates Screen Urine Negative (Negative); Benzodiazepines Screen Urine Positive (Negative); Cocaine Screen Urine Negative (Negative); Opiate Screen Urine Positive (Negative); PCP Screen Urine Negative (Negative); THC Screen Urine Negative (Negative)
--- NOTE | 2021-12-28 09:18 | ECG_ITS ---
[facility] Test Date: 2021-12-28 Pat Name: Stephanie Steel Department: Room: Gender: Female Cycle Repairer: : 1960 Requested By: Zheng Castillo Order Number: [id number] Bea MD: Misha Moe M.D. Measurements Intervals [place] Rate: 95 P: 65 TN: 160 QRS: 70 QRSD: 90 T: 69 QT: 355 QTc: 447 Interpretive Statements SINUS RHYTHM POSSIBLE RIGHT VENTRICULAR CONDUCTION DELAY [RSR (QR) IN V1/V2] Compared to ECG 12/28/2021 07:45:45 No significant changes Electronically Signed On 12-28-2021 21:20:48 CDT by Misha Moe M.D. [id number]
[2021-12-28 10:14] LABS: Adenovirus Not Detected (NOT DETECT); Chlamydia Pneumoniae Not Detected (NOT DETECT); Coronavirus 229E,HKU1,NL63,OC4 Not Detected (NOT DETECT); Human Metapneumovirus Not Detected (NOT DETECT); Human Rhinovirus/Enterovirus Not Detected (NOT DETECT); Influenza A Not Detected (NOT DETECT); Influenza A H1 Not Detected (NOT DETECT); Influenza A H1-2009 Not Detected (NOT DETECT); Influenza A H3 Not Detected (NOT DETECT); Influenza B Not Detected (NOT DETECT); Mycoplasma Pneumoniae Not Detected (NOT DETECT); Parainfluenza Virus Type 1 Not Detected (NOT DETECT); Parainfluenza Virus Type 2 Not Detected (NOT DETECT); Parainfluenza Virus Type 3 Not Detected (NOT DETECT); Parainfluenza Virus Type 4 Not Detected (NOT DETECT); Respiratory Syncytial Virus A Not Detected (NOT DETECT); Respiratory Syncytial Virus B Not Detected (NOT DETECT); SARS-COV-2 Detected (NOT DETECT)
[2021-12-28] MEDS: piperacillin-tazobactam 3.375 GM in sodium chloride 0.9% (plus) 50 ML IV ×2 (10:45→17:58)
[2021-12-28 10:56] LABS: Basophils % 0.1 %; Eosinophils # 0.1 10^3/uL (0.0-0.8); Eosinophils % 0.5 %; Hematocrit 27.7 % (37.0-47.0); Hemoglobin 8.9 g/dL (11.5-15.3); Lymphocytes # 0.9 10^3/uL (0.8-4.8); Lymphocytes % 6.5 %; Mean Corpuscular HGB Conc 32.1 g/dL (30.0-36.0); Mean Corpuscular Hemoglobin 33.7 pg (28.0-34.0); Mean Corpuscular Volume 104.9 fl (81-99); Mean Platelet Volume 9.8 fL (7.4-10.4); Monocytes # 0.7 10^3/uL (0.2-0.9); Monocytes % 5.2 %; Neutrophils # 11.81 10^3/uL (1.8-7.7); Nucleated Red Blood Cells % 0 %; Platelet Count 282 10^3/cmm (130-400); Red Blood Count 2.64 10^6/uL (4.1-5.3); Red Cell Distribution Width 12.6 % (12.1-15.1); White Blood Count 13.6 10^3/uL (4.0-10.0)
--- NOTE | 2021-12-28 11:09 | P.HP_ITS ---
Providers/Chief Complaint Admitting Physician: Galen Wen MD, hospitalist Chief Complaint: AMS History of Present Illness Stephanie Steel is a 61 year old female who presents to the emergency department from [facility] out reach with concern of lethargy, confusion. She was found to have a low oxygen saturation on first evaluation around 75%. Patient had been seen recently in the emergency department with altered mental status on December 26. She had also been seen on December 25 with a clavicle fracture on the right. It is difficult to get much history out of the patient currently. She is very sleepy, will awaken and give one-word answers, and then quickly fall asleep. It is unknown if her answers are accurate. While in the emergency department she was noted to have an elevated temperature, lung infiltrate, positive COVID. She required BiPAP initially but after Narcan seemed to improve somewhat and was able to be taken off BiPAP. She has received Levaquin, Zosyn, remdesivir, IV fluids. Review of Systems General: Reports: ROS unobtainable due to mental status (lethargic) Medications/Allergies Home Medications Medication Instructions Recorded Confirmed Last Taken Type acetaminophen 300 mg-codeine 60 mg 1 tab PO Q6H PRN 12/26/21 12/28/21 Unknown History tablet albuterol sulfate 90 mcg/actuation 1 puff INHALATION Q4H 12/26/21 12/28/21 Unknown History aerosol inhaler alprazolam 1 mg tablet 1 mg PO BID 12/26/21 12/28/21 Unknown History cyclobenzaprine 10 mg tablet 10 mg PO BID 12/26/21 12/28/21 Unknown History dicyclomine 20 mg tablet 20 mg PO BID 12/26/21 12/28/21 Unknown History duloxetine 30 mg capsule,delayed 30 mg PO BEDTIME 12/26/21 12/28/21 Unknown History release gabapentin 400 mg capsule 400 mg PO TID 12/26/21 12/28/21 Unknown History losartan 100 1 tab PO DAILY 12/26/21 12/28/21 Unknown History mg-hydrochlorothiazide 12.5 mg tablet memantine 5 mg tablet 5 mg PO BID 12/26/21 12/28/21 Unknown History metoclopramide HCl 10 mg tablet 10 mg PO QID 12/26/21 12/28/21 Unknown History omeprazole 40 mg capsule,delayed 40 mg PO DAILY 12/26/21 12/28/21 Unknown History release oxybutynin chloride 5 mg tablet 5 mg PO BEDTIME 12/26/21 12/28/21 Unknown History prednisone 10 mg tablet 10 mg PO DAILY 12/26/21 12/28/21 Unknown History promethazine 25 mg tablet 25 mg PO BID 12/26/21 12/28/21 Unknown History quetiapine 100 mg tablet 100 mg PO BID 12/26/21 12/28/21 Unknown History tiotropium bromide 18 mcg capsule 1 cap INHALATION DAILY 12/26/21 12/28/21 Unknown History with inhalation device (Spiriva with HandiHaler) Allergies Allergy/AdvReac Type Severity Reaction Status Date / Time NSAIDS (Non-Steroidal Allergy Unknown Verified 12/28/21 08:22 Anti-Inflamma PFSH Acute PFSH: Medical History (Updated 12/28/21 @ 12:42 by Zheng Heredia DO) COPD (chronic obstructive pulmonary disease) Depression with anxiety GERD (gastroesophageal reflux disease) Hypertension Surgical History (Updated 12/28/21 @ 12:42 by Zheng Heredia DO) History of right below knee amputation Social History (Updated 12/28/21 @ 11:16 by Galen Wen MD) Smoking and tobacco status: current every day smoker Alcohol intake: current Other PFSH information: Supplemental PFSH Information: Secondary to lethargy of the patient it is unknown if past medical history, surgical history, family history is accurate or. Cannot really delineate family history from her. I did get from her that she does smoke, and drinks occasionally but it was hard to quantify how much. Vitals/I&O/Wt Last Vital Signs Temp 100 F H 12/28/21 08:26 Pulse 97 12/28/21 10:34 Resp 19 H 12/28/21 10:34 BP 107/55 12/28/21 09:11 Pulse Ox 98 12/28/21 10:34 12/27/21 12/28/21 12/28/21 22:59 06:59 14:59 Intake Total 1000 / 1000 Balance 1000 / 1000 Physical Exam Narrative: General exam is a female, coming off BiPAP for short while ago, lethargic, who will answer a few one-word questions but quickly goes back to sleep. HEENT atraumatic normocephalic. Pupils equally round. Oropharynx clear. Neck is supple no lymphadenopathy or thyromegaly Cardiovascular regular rate and rhythm, no murmur, bruising noted over right chest Lungs a few faint expiratory wheezes Abdomen is soft with positive bowel sounds. No obvious organomegaly exam is deferred Extremities no cyanosis clubbing or edema, cap refill brisk Skin see findings under right chest Neuro: No obvious focal deficits. Somewhat lethargic. Urinary Catheter Management: Davis: Cath Placed During This Visit: yes Urinary Catheter Date of Insertion: 12/28/21 Urinary Catheter Time of Insertion: 08:28 Data : 12/28/21 10:05 12/28/21 11:50 Other Labs: ABG demonstrates pH 7.42, PCO2 of 45, PO2 of 93 on BiPAP with an FiO2 of 35% Urinalysis is negative Urine drug screen positive for opiates and benzodiazepines Coronavirus PCR positive Chest x-ray significant for bibasilar infiltrates but much more significant right lower lobe and right middle lobe. I would question aspiration. Head CT is negative Blood culture has been collected Previous blood culture collected on the with 1 out of 2 bottles with gram- positive cocci in clusters EKG demonstrates normal sinus rhythm, normal axis, no acute changes. Micro: Microbiology 12/28/21 10:05 Blood Culture - Preliminary Blood SPECIMEN COLLECTED 12/28/21 10:20 Blood Culture - Preliminary Blood SPECIMEN COLLECTED A&P Assessment and plan (1) Acute respiratory failure: Patient presented with acute respiratory with low oxygen saturation. She was very lethargic. Evidence on chest x-ray of bilateral infiltrates but significantly greater in the right middle and right lower lobe. She admits to vomiting so possibility of aspiration exists. She was placed on BiPAP in the emergency department at an FiO2 of 35%. From my understanding she was very lethargic and had some ineffective breathing with retractions. Respiratory rate was elevated in the mid 20s. With naloxone, she became somewhat more alert although still lethargic and requiring less oxygen. Will continue to observe closely. Provide BiPAP as needed. Wean oxygen as tolerated. Avoid any medications which could suppress breathing. Note that her urine drug screen was positive for opiates, and benzodiazepines. Status: Acute (2) COVID-19: COVID PCR positive Secondary to presentation with pneumonitis, start treatment with remdesivir and dexamethasone. Incentive spirometry Pulmonary toilet check CRP Status: Acute (3) Aspiration pneumonitis: I have significant concerns, that aspiration pneumonitis may have occurred. Secondary to by lobar infiltrates with respiratory failure broad-spectrum antibiotics will be initiated with vancomycin, Zosyn,. We will check an MRSA PCR, sputum culture. Note that 1 blood culture done several days ago was positive for gram-positive cocci. As she awakens, a diet can be started with close monitoring for aspiration. Status: Acute (4) Acute encephalopathy: Patient presents with acute encephalopathy. This may be multifactorial. Multiple drugs on urine drug screen which could cause. Hypoxia with respiratory failure from COVID or aspiration could also cause. CT head was negative. Close monitoring for resolution. From my understanding she is already improving. Initiate thiamine Monitor for any withdrawal. She admits to drinking on occasion. Status: Acute (5) Anemia: Has significant anemia. Etiology not known. Stool Hemoccult, anemia panel No reason to suspect acute bleeding currently. Status: Acute (6) COPD with acute exacerbation: Continue dexamethasone as initiated for COVID Pulmonary toilet with albuterol and Atrovent Budesonide twice daily Status: Acute Plan Recent clavicle fracture. Other medical problems as outlined in past medical history. Poor historian so other problems may be identified. Full code Lovenox for DVT prophylaxis currently Attestations Medical Necessity Statement*: Will need greater than 2 midnight stay for evaluation and treatment of acute respiratory failure, acute encephalopathy, pos itive drug screen, aspiration pneumonitis, COVID Critical Care Time: The high probability of a clinically significant, sudden or life threatening deterioration of the patient's [pulmonary, infectious disease, neurologic system(s) required my full and direct attention, intervention and personal management. The critical care time is as shown. This time is in addition to time spent performing any reported procedures but includes the following: [x] Data and vital sign review and interpretation [x] Patient assessment, examination and intervention [x] Documentation [x] Medication orders and management Critical Care Time (min): 62 Coding Level of Care Code Acute Ecological Modeler for [facility] Diagnoses Acute respiratory failure J96.00 COVID-19 U07.1 Aspiration pneumonitis J69.0 Acute encephalopathy G93.40 Anemia D64.9 COPD with acute exacerbation J44.1
[2021-12-28 11:17] LABS: Ketone (Acetest) Serum Negative (Negative)
[2021-12-28 11:24] LABS: Troponin(5th) Baseline 14 ng/L (0-10)
[2021-12-28] MEDS: remdesivir 200 MG in sodium chloride 0.9% (100 ml) 60 ML 100 MG IV (11:54)
[2021-12-28] MEDS: dexamethasone 10 mg/mL INJ 6 MG IVP (12:00)
--- NOTE | 2021-12-28 12:10 | PC.NURSE ---
Called for report twice to ICU, was unable to give report.
--- NOTE | 2021-12-28 12:22 | PC.NURSE ---
Unable to give report.
[2021-12-28 12:32] LABS: Alanine Aminotransferase 13 U/L (0-33); Albumin Level 3.4 g/dL (3.5-5.2); Alkaline Phosphatase 80 IU/L (35-105); Aspartate Amino Transferase 20 U/L (0-32); Blood Urea Nitrogen 8 mg/dL (8-23); Calcium 8.1 mg/dL (8.5-10.5); Carbon Dioxide 30 mmol/L (22-29); Chloride 98 mmol/L (98-107); Creatine Phosphokinase 126 U/L (26-192); Globulin 2.1 g/dL (1.3-4.6); Glucose 92 mg/dL (65-115); Lipase 9 U/L (13-60); Magnesium 1.9 mg/dL (1.7-2.3); Osmolality Calculated 276 mOsm/kg (285-295); Sodium 134 mmol/L (136-145); Total Bilirubin 0.5 mg/dL (0.15-1.2); Total Protein 5.5 g/dL (6.6-8.7)
[2021-12-28 12:38] LABS: Acetaminophen < 5.0 ug/mL (10-30); Alcohol Level < 10 mg/dL (0-10); Salicylate < 0.3 mg/dL (3-10)
[2021-12-28 12:56] LABS: C Reactive Protein 188.5 mg/L (0.0-4.9); Ferritin 130 ng/mL (15-150); Iron 9 ug/dL (37-145); Percent Saturation 3.5 % (20-50); Thyroid Stimulating Hormone 0.64 uIU/mL (0.27-4.20); Total Iron Binding Capacity 257 mcg/dl; Unsaturated Iron Binding 248 ug/dL (112-347); Vitamin B12 340 pg/mL (232-1245)
--- NOTE | 2021-12-28 13:18 | ECG_ITS ---
[facility] Test Date: 2021-12-28 Pat Name: Stephanie Steel Department: Room: ICU10 Gender: Female Public Health Program Manager: : 1960 Requested By: Zheng Castillo Order Number: [id number] Bea MD: Jose Falk M.D. Measurements Intervals Grant Rate: P: UT: QRS: QRSD: T: QT: QTc: Interpretive Statements SINUS RHYTHM Compared to ECG 12/28/2021 10:23:51 NO SIGNIFICANT CHANGES Electronically Signed On 12-29-2021 20:51:06 CDT by Jose Falk M.D. [id number]
[2021-12-28 13:40] LABS: Anion Gap 10.6 (5-19); Potassium 4.6 mmol/L (3.5-5.1)
[2021-12-28 13:46] LABS: Folate Level > 20.0 ng/mL (4.8-37.3)
--- NOTE | 2021-12-28 13:50 | PC.NURSE ---
To ICU 1340, AAOx2, mumbled speech, asking for food. Vitals stable.
[2021-12-28] MEDS: ipratropium-albuterol 3 mL Neb INHALATION ×4 (13:56→23:47)
[2021-12-28] MEDS: thiamine 100 mg Tablet PO (14:46)
[2021-12-28] MEDS: sodium chloride 0.9% 1,000 ML 50 ML IV (14:46)
[2021-12-28] MEDS: enoxaparin 40 mg/0.4 mL Syringe SUBCUT (14:46)
[2021-12-28] MEDS: iron sucrose 200 MG in sodium chloride 0.9% (100 ml) 100 ML 220 MG IV (14:46)
[2021-12-28] MEDS: vancomycin 1,000 MG in sodium chloride 0.9% 250 ML 250 MG IV (16:28)
[2021-12-28 17:00] LABS: Troponin 5 6HR 9.11 ng/L (0-10)
[2021-12-28 17:04] LABS: Troponin 5 6HR Delta 5.35 ng/L (0-12)
[2021-12-28] MEDS: budesonide 0.5 mg/2 mL Neb INHALATION (20:31)
[2021-12-28] MEDS: duloxetine 30 mg Capsule PO (21:02)
[2021-12-28] MEDS: LORazepam 2 mg/mL INJ 1 mL IVP (21:02)
[2021-12-29] VITALS (101 sets, daily range): BP systolic 117–165; BP diastolic 55–94; PULSE 80–126; RESP 13–40; TEMP 36.6–37; O2SAT 90–97
[2021-12-29] MEDS: piperacillin-tazobactam 3.375 GM in sodium chloride 0.9% (plus) 50 ML IV ×3 (00:57→17:54)
[2021-12-29] MEDS: ipratropium-albuterol 3 mL Neb INHALATION ×5 (03:40→20:30)
[2021-12-29] MEDS: vancomycin 1,000 MG in sodium chloride 0.9% 250 ML 250 MG IV ×2 (04:01→15:51)
[2021-12-29 04:31] LABS: Basophils % 0.1 %; Hematocrit 26.1 % (37.0-47.0); Hemoglobin 8.2 g/dL (11.5-15.3); Lymphocytes % 5.6 %; Mean Corpuscular HGB Conc 31.4 g/dL (30.0-36.0); Mean Corpuscular Hemoglobin 33.2 pg (28.0-34.0); Mean Corpuscular Volume 105.7 fl (81-99); Mean Platelet Volume 9.2 fL (7.4-10.4); Monocytes # 0.5 10^3/uL (0.2-0.9); Monocytes % 2.9 %; Neutrophils # 15.71 10^3/uL (1.8-7.7); Neutrophils % 90.5 %; Nucleated Red Blood Cells % 0 %; Platelet Count 265 10^3/cmm (130-400); Red Blood Count 2.47 10^6/uL (4.1-5.3); Red Cell Distribution Width 12.4 % (12.1-15.1); White Blood Count 17.4 10^3/uL (4.0-10.0)
[2021-12-29 04:58] LABS: Alanine Aminotransferase 53 U/L (0-33); Albumin Level 3.5 g/dL (3.5-5.2); Alkaline Phosphatase 177 IU/L (35-105); Aspartate Amino Transferase 59 U/L (0-32); Blood Urea Nitrogen 10 mg/dL (8-23); Carbon Dioxide 28 mmol/L (22-29); Chloride 98 mmol/L (98-107); Globulin 2.2 g/dL (1.3-4.6); Glucose 176 mg/dL (65-115); Magnesium 1.9 mg/dL (1.7-2.3); Osmolality Calculated 279 mOsm/kg (285-295); Sodium 133 mmol/L (136-145); Total Bilirubin 0.2 mg/dL (0.15-1.2); Total Protein 5.7 g/dL (6.6-8.7)
[2021-12-29 05:12] LABS: Anion Gap 11.3 (5-19); Potassium 4.3 mmol/L (3.5-5.1)
[2021-12-29] MEDS: remdesivir 100 MG in sodium chloride 0.9% (100 ml) 80 ML IV (05:31)
--- NOTE | 2021-12-29 07:00 | XR_ITS ---
WS: [id number] XR chest 1V portable [id number] REASON FOR EXAM: PNEUMONIA FINDINGS: Extensive reticular and groundglass density in the right lung which is more extensive but less dense than on the previous examination 12/28/2021. This may be due to better lung expansion. Similar but milder changes in the left lung somewhat more prominent than on the previous examination of 12/28/2021. No other interval change or new finding. XR/XR chest 1V portable [id number] IMPRESSION: Relatively stable abnormal chest as above.
[2021-12-29 08:07] LABS: NT Pro B Type Natriuretic Pept 2212 pg/mL (0-125); Procalcitonin 1.78 ng/mL (0-0.5)
[2021-12-29 08:24] LABS: D Dimer 1.36 ug/mIFEU (0-0.59)
[2021-12-29] MEDS: budesonide 0.5 mg/2 mL Neb INHALATION ×2 (08:27→20:30)
--- NOTE | 2021-12-29 09:05 | PM.PN ---
Subjective Subjective: Mrs. Steel is much more alert today. She reports she is short of breath, and coughing but feels better than yesterday. She denies any recent alcohol use, reporting it has been over 8 months since she drank. She denies any homicidal or suicidal ideation. She reports she is depressed at times. She is not for sure if she vomited. She reports she has been vaccinated for COVID, with 2 boosters. Medications: Reviewed: Yes Vitals/I&O/Wt Last Vital Signs Temp 98.1 F 12/29/21 04:00 Pulse 107 H 12/29/21 08:37 Resp 20 H 12/29/21 08:27 BP 165/79 12/29/21 07:00 Pulse Ox 97 12/29/21 08:37 12/28/21 12/29/21 12/29/21 22:59 06:59 14:59 Intake Total 850 / 2150 400 / 400 Output Total 2430 / 2430 900 / 3330 Balance -1580 / -280 -900 / -1180 400 / 400 Weight last 48 hrs Weight 71.395 kg Weight 71.242 kg Physical Exam Narrative: General exam is a female, off BiPAP, on 2 L, communicative. Mild tachycardia. Neck is supple no lymphadenopathy or thyromegaly Cardiovascular regular rate and rhythm, no murmur, bruising noted over right chest Lungs bilateral expiratory wheezes. No crackles. Abdomen is soft with positive bowel sounds. No obvious organomegaly exam is deferred Extremities no cyanosis clubbing or edema, cap refill brisk Skin see findings under right chest Neuro: No obvious focal deficits. Somewhat lethargic. Urinary Catheter Management: Davis: Cath Placed During This Visit: yes Reason for Continuing Indwelling Catheter: Accurate Measurement of Urinary Output in Critically Ill Patients Urinary Catheter Date of Insertion: 12/28/21 Urinary Catheter Time of Insertion: 08:28 Data : 12/29/21 04:05 12/29/21 04:05 Other Labs: Chest x-ray shows persistent bilateral interstitial infiltrates right greater than left Micro: Microbiology 12/28/21 17:15 Occult Blood (FIT) - Final Stool Routine Collection 12/28/21 10:05 Blood Culture - Preliminary Blood SPECIMEN COLLECTED 12/28/21 10:20 Blood Culture - Preliminary Blood SPECIMEN COLLECTED A&P Assessment and plan (1) Acute respiratory failure: Patient presented with acute respiratory with low oxygen saturation. She was very lethargic. Evidence on chest x-ray of bilateral infiltrates but significantly greater in the right middle and right lower lobe. Concern of aspiration pneumonitis. She was placed on BiPAP in the emergency department at an FiO2 of 35%. From my understanding she was very lethargic and had some ineffective breathing with retractions. Respiratory rate was elevated in the mid 20s. With naloxone, she became somewhat more alert although still lethargic and requiring less oxygen. She is now off BiPAP, on 2 L and better although still tachypneic and still with wheezing. She is positive for COVID-19 pneumonia Urine drug screen was positive for benzodiazepines and narcotics Status: Acute (2) COVID-19: COVID PCR positive CRP elevated Continue remdesivir Continue dexamethasone Incentive spirometry Pulmonary toilet check CRP Dimer checked today is elevated. Will check CTA Note that bacterial infection may exist as procalcitonin elevated. Status: Acute (3) Aspiration pneumonitis: I have significant concerns, that aspiration pneumonitis may have occurred. Secondary to by lobar infiltrates with respiratory failure broad-spectrum antibiotics will be initiated with vancomycin, Zosyn,. We will check an MRSA PCR, sputum culture. Note that 1 blood culture done several days ago was positive for gram-positive cocci. As she awakens, a diet can be started with close monitoring for aspiration. Speech therapy evaluation Procalcitonin is elevated Status: Acute (4) Acute encephalopathy: Patient presents with acute encephalopathy. This may be multifactorial. Multiple drugs on urine drug screen which could cause. Hypoxia with respiratory failure from COVID or aspiration could also cause. CT head was negative. Close monitoring for resolution. She is significantly improved Thiamine initiated Restart some of her chronic medicines at significantly lower doses Monitor for any withdrawal. Status: Acute (5) Anemia: Has significant anemia. Etiology not known. Stool Hemoccult pending. Anemia panel performed demonstrating iron deficiency anemia. Given iron sucrose transfusion yesterday. Repeat today. No reason to suspect acute bleeding currently. Status: Acute (6) COPD with acute exacerbation: Continue dexamethasone as initiated for COVID Pulmonary toilet with albuterol and Atrovent Budesonide twice daily Status: Acute Plan Recent clavicle fracture. Other medical problems as outlined in past medical history. Poor historian so other problems may be identified. Transaminitis. May be secondary to COVID. Check hepatitis panel Elevated BNP. Check echocardiogram. Discontinue fluids. Lasix x1. Full code Lovenox for DVT prophylaxis currently Attestations Medical Necessity Statement*: Needs continued hospitalization secondary to COVID-19 pneumonia, possible superimposed bacterial pneumonia in this patient with respiratory failure and multiple other comorbidities. Critical Care Time: The high probability of a clinically significant, sudden or life threatening deterioration of the patient's [pulmonary, infectious disease, neurologic, hematologic system(s) required my full and direct attention, intervention and personal management. The critical care time is as shown. This time is in addition to time spent performing any reported procedures but includes the following: [x] Data and vital sign review and interpretation [x] Patient assessment, examination and intervention [x] Documentation [x] Medication orders and management Critical Care Time (min): 32 Coding Level of Care Code Acute Dental Technician Apprentice for [facility] Diagnoses Acute respiratory failure J96.00 COVID-19 U07.1 Aspiration pneumonitis J69.0 Acute encephalopathy G93.40 Anemia D64.9 COPD with acute exacerbation J44.1
--- NOTE | 2021-12-29 09:09 | CTR_ITS ---
PROCEDURE INFORMATION: Exam: CTA Chest With Contrast Exam date and time: 12/29/2021 5:35 PM Age: 61 years old Clinical indication: Cough and shortness of breath; Patient HX: SOB, cough, covid+; Additional info: Elevated dimer, resp failure TECHNIQUE: Imaging protocol: Computed tomographic angiography of the chest with contrast. 3D rendering (Not supervised by radiologist): MIP and/or 3D reconstructed images were created by the technologist. Radiation optimization: All CT scans at this facility use at least one of these dose optimization techniques: automated exposure control; mA and/or kV adjustment per patient size (includes targeted exams where dose is matched to clinical indication); or iterative reconstruction. Contrast material: OMNI 350; Contrast volume: 50 ml; Contrast route: INTRAVENOUS (IV); COMPARISON: CR XR chest 1V portable [id number] 12/29/2021 6:46 AM RADIATION DOSE METRICS: Total DLP (mGy-cm): 530.8 FINDINGS: Limitations: Study is moderately limited by patient respiratory motion. Pulmonary arteries: No large or central pulmonary emboli are demonstrated. Evaluation of peripheral pulmonary arteries is somewhat limited by patient respiratory motion artifact but no definite emboli are have identified. Aorta: There is atherosclerotic calcification of the aortic arch and descending thoracic aorta. There is no thoracic aortic aneurysm or dissection. Lungs: There is dependent atelectasis in both lower lobes. There are areas of ground-glass opacification in the periphery of the lungs mainly in the right upper lobe and there is also more prominent infiltrate in the posterior right upper lobe and in the middle lobe with interlobular septal thickening and crazy paving appearance. These findings may represent organizing pneumonia and are fairly typical for COVID-19 infection. Pleural spaces: There are small bilateral pleural effusions. Heart: Unremarkable. No cardiomegaly. No pericardial effusion. Lymph nodes: There are mildly prominent paratracheal lymph nodes in there are mildly enlarged subcarinal lymph nodes measuring up to 13 x 15 mm. There is mild hilar adenopathy. Bones/joints: Unremarkable. No acute fracture. Soft tissues: Unremarkable. CT/CT angio chest PE protcl [id number] IMPRESSION: 1. Somewhat limited exam due to patient respiratory motion. No gross evidence of pulmonary embolism. 2. Commonly reported imaging features of COVID-19 pneumonia are present. Other processes such as influenza pneumonia and organizing pneumonia, as can be seen with drug toxicity and connective tissue disease, can cause a similar imaging pattern. 3. Small bilateral pleural effusions.
--- NOTE | 2021-12-29 09:09 | USCV_ITS ---
Stephanie Steel Age: 61 Gender: F : 1960 Exam Date: 12/29/2021 09:32 Ordering Phys: Galen Wen MD Technologist: Andriy Fenton Exam Location: [facility] [place] Indication: ? ef BP: 154 / 86 HR: 47 Rhythm: Sinus Technical Quality: Adequate MEASUREMENTS (Male / Female) Normal Values 2D ECHO LV Diastolic Diameter PLAX 4.2 cm 4.2 - 5.9 / 3.9 - 5.3 cm LV Systolic Diameter PLAX 2.4 cm IVS Diastolic Thickness 1.1 cm 0.6 - 1.0 / 0.6 - 0.9 cm IVS Systolic Thickness 1.7 cm LVPW Diastolic Thickness 1.2 cm 0.6 - 1.0 / 0.6 - 0.9 cm LVPW Systolic Thickness 1.4 cm LVOT Diameter 2.0 cm LV Ejection Fraction 2D Teich 73.2 % LV Ejection Fraction MOD 2C 72.3 % LV Ejection Fraction 2C AL 71.9 % LA Diameter 3.9 cm M-MODE LV Diastolic Diameter MM 4.7 cm 4.2 - 5.9 / 3.9 - 5.3 cm LV Systolic Diameter MM 2.8 cm LV Ejection Fraction MM Teich 72.4 % IVS Diastolic Thickness MM 0.9 cm 0.6 - 1.0 / 0.6 - 0.9 cm IVS Systolic Thickness MM 2.0 cm LVPW Diastolic Thickness MM 1.1 cm 0.6 - 1.0 / 0.6 - 0.9 cm LVPW Systolic Thickness MM 1.4 cm RV Diastolic Diameter MM 1.7 cm Aortic Annulus Diameter 3.1 cm LA Ao Ratio MM 1.2 MV E Point Septal Separation 0.9 cm DOPPLER AV Peak Velocity 160.0 cm/s LVOT Peak Velocity 114.0 cm/s AV Area Cont Eq vti 2.4 cm squared AV Area Cont Eq pk 2.3 cm squared MV Area PHT 7.6 cm squared Mitral E to A Ratio 1.0 MV E' Velocity 62.2 cm/s Mitral E to MV E' Ratio 8.6 Mitral E to LV E' Lateral Ratio 8.4 Mitral E to LV E' Septal Ratio 8.8 TR Peak Velocity 115.0 cm/s TR Peak Gradient 5.3 mmHg TV Peak E Velocity 74.0 cm/s Right Atrial Pressure 3.0 mmHg Pulmonary Artery Systolic Pressu 8.3 mmHg FINDINGS Left Ventricle Normal left ventricular size and systolic function, EF 71 %. No regional wall motion abnormalities. Right Ventricle The right ventricle is normal in size and function. Right Atrium The right atrium is normal in size. Left Atrium Mildly increased left atrial size. Mitral Valve Thickened mitral valve. Mild mitral annular calcification. At least moderate mitral valve regurgitation. Aortic Valve No gross abnormalities noted Tricuspid Valve No gross abnormalities noted Pulmonic Valve Pulmonic valve not well visualized. Pericardium Normal pericardium without effusion. Aorta Normal ascending aorta dimension. IVC Normal inferior vena cava. CONCLUSIONS Normal left ventricular size and systolic function, EF 71 %. No regional wall motion abnormalities. Mildly increased left atrial size. Thickened mitral valve. Mild mitral annular calcification. At least moderate mitral valve regurgitation. There is no pericardial effusion. There are no intracardiac masses. No similar previous studies are available for comparison Dr Misha Moe MD [facility] (Electronically Signed) Final Date: 30 December 2021 01:19 S
[2021-12-29] MEDS: FUROsemide 10 mg/mL SDV 4mL 40 MG IVP (09:37)
[2021-12-29] MEDS: quetiapine 25 mg Tablet 50 MG PO ×2 (09:37→20:29)
[2021-12-29] MEDS: gabapentin 300 mg Capsule PO ×3 (09:37→20:29)
[2021-12-29] MEDS: pantoprazole DR 40 mg Tablet PO (09:38)
[2021-12-29] MEDS: multivitamin therapeutic Tablet 1 TAB PO (09:38)
[2021-12-29 10:10] LABS: Hepatitis A Antibody IgM Non-Reactive (Nonreactive); Hepatitis B Core IgM Non-Reactive (Nonreactive); Hepatitis B Surface Antigen Non-Reactive (Nonreactive); Hepatitis C Virus Antibody Reactive (Nonreactive)
[2021-12-29] MEDS: iron sucrose 200 MG in sodium chloride 0.9% (100 ml) 100 ML 220 MG IV (11:46)
--- NOTE | 2021-12-29 12:45 | PC.CHAP ---
Pastoral Care Encounter/Spiritual Assessment Type of Contact [] Declined architecture technician visit [] Patient/Family/Request visit [] Outpatient visit [] Follow-up visit [] Physician referral [] Code/Alert [x] Routine visit [] Staff referral [] Actively dying [x] Patient sleeping [] Family support [] [] Out of room [] Palliative care [] [] Receiving care in room [] Pre-surgical visit [] Trauma [] Long length of stay [x] ICU visit [] Other: Relational/Emotional Strength [] Patient feels connected with others/family/visitors/staff [] Distress [] Loneliness/isolation [] Abandonment Spirituality of Patient [] Person of [place]ito [] Attends Latter Day of their [place] [] Believes in Prayer [] Reads Bible or Lutheran materials [] There are Spiritual issues to be addressed Coin Machine Collector Interventions [x] Prayer [] Active listening [] Non-anxious presence [] Spiritual/emotional support [] Crisis/trauma care [] Spiritual counseling [] Bereavement support [] Provided bereavement packet [] Provided Bible/devotional materials [] Provided toy/stuffed animal, coloring book to patient or family member [] Provided Communion [] Anointing/[place] [] Salvation [x] Completed spiritual assessment [] Other: Impact on Illness or Injury [] Angry [] Fearful [] Anxious [] Often cries [] Exhaustion [] Unable to work [] Unable to attend jehovah's witness [] Unable to walk/stand [] Unable to read [] Unable to drive [] Unable to eat/drink [] Unable to sleep [] Unable to be with family [] Patient intubated [] Other: Summary Time spent with patient
[2021-12-29] MEDS: dexamethasone 10 mg/mL INJ 6 MG IVP (12:51)
[2021-12-29] MEDS: enoxaparin 40 mg/0.4 mL Syringe SUBCUT (15:52)
[2021-12-29] MEDS: iohexol 350 mg/mL 100 mL Btl IV (17:44)
[2021-12-29] MEDS: LORazepam 0.5 mg Tablet PO (17:54)
[2021-12-29] MEDS: duloxetine 30 mg Capsule PO (20:29)
[2021-12-30] VITALS (35 sets, daily range): BP systolic 113–158; BP diastolic 57–97; PULSE 82–119; RESP 14–28; TEMP 36.6–37.1; O2SAT 92–100
[2021-12-30] MEDS: piperacillin-tazobactam 3.375 GM in sodium chloride 0.9% (plus) 50 ML IV ×4 (00:03→23:31)
[2021-12-30] MEDS: ipratropium-albuterol 3 mL Neb INHALATION ×7 (00:19→23:28)
[2021-12-30 03:46] LABS: Basophils % 0.1 %; Hematocrit 26.6 % (37.0-47.0); Hemoglobin 8.5 g/dL (11.5-15.3); Lymphocytes # 0.5 10^3/uL (0.8-4.8); Mean Corpuscular Hemoglobin 33.6 pg (28.0-34.0); Mean Corpuscular Volume 105.1 fl (81-99); Mean Platelet Volume 9.5 fL (7.4-10.4); Monocytes # 0.6 10^3/uL (0.2-0.9); Monocytes % 4.1 %; Neutrophils # 14.19 10^3/uL (1.8-7.7); Neutrophils % 91.4 %; Nucleated Red Blood Cells % 0 %; Platelet Count 301 10^3/cmm (130-400); Red Blood Count 2.53 10^6/uL (4.1-5.3); Red Cell Distribution Width 12.6 % (12.1-15.1); White Blood Count 15.5 10^3/uL (4.0-10.0)
[2021-12-30 04:08] LABS: Vancomycin Trough 6.7 ug/mL (10-15)
[2021-12-30 04:16] LABS: Alanine Aminotransferase 46 U/L (0-33); Albumin Level 3.1 g/dL (3.5-5.2); Alkaline Phosphatase 151 IU/L (35-105); Aspartate Amino Transferase 35 U/L (0-32); Blood Urea Nitrogen 13 mg/dL (8-23); Calcium 9.1 mg/dL (8.5-10.5); Carbon Dioxide 27 mmol/L (22-29); Chloride 93 mmol/L (98-107); Glucose 174 mg/dL (65-115); Osmolality Calculated 274 mOsm/kg (285-295); Sodium 130 mmol/L (136-145); Total Bilirubin 0.2 mg/dL (0.15-1.2); Total Protein 6.1 g/dL (6.6-8.7)
[2021-12-30] MEDS: vancomycin 1,000 MG in sodium chloride 0.9% 250 ML 250 MG IV (04:25)
[2021-12-30] MEDS: remdesivir 100 MG in sodium chloride 0.9% (100 ml) 80 ML IV (06:04)
[2021-12-30] MEDS: budesonide 0.5 mg/2 mL Neb INHALATION ×2 (07:36→19:40)
[2021-12-30] MEDS: quetiapine 25 mg Tablet 50 MG PO ×2 (07:54→20:41)
[2021-12-30] MEDS: pantoprazole DR 40 mg Tablet PO (07:54)
[2021-12-30] MEDS: multivitamin therapeutic Tablet 1 TAB PO (07:54)
[2021-12-30] MEDS: gabapentin 300 mg Capsule PO ×3 (07:54→20:41)
--- NOTE | 2021-12-30 11:16 | P.PN_ITS ---
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 Patient can be transferred out of ICU Abnormal liver enzymes Echo shows preserved ejection fraction, EF 71%, no signs of PE COVID-19 related groundglass opacities, small bilateral pleural effusion Adequate diuresis-4 L balance Vitals/I&O/Wt Last Vital Signs Temp 98.7 F 12/30/21 05:30 Pulse 119 H 12/30/21 08:00 Resp 23 H 12/30/21 08:00 BP 113/59 12/30/21 08:00 Pulse Ox 93 12/30/21 08:00 12/29/21 12/30/21 12/30/21 22:59 06:59 14:59 Intake Total 506.875 / 1928.542 530 / 2458.542 520 / 520 Output Total 2200 / 4800 1250 / 6050 Balance -1693.125 / -2871.458 -720 / -3591.458 520 / 520 Weight last 48 hrs Weight 69.763 kg Weight 71.395 kg Weight 71.242 kg Physical Exam Narrative: Patient is sitting in a chair saturating well on 4 L nasal cannula No active conversational dyspnea shortness of breath Bilateral breath sound without adventitious rhonchi or crackles S1, S2 sinus tachycardia Abdomen is soft Right leg BKA Left leg without any edema swelling or venous stasis dermatitis Patient is awake and alert No signs of confusion Patient is stating that she has a friend who should be notified in case something happens to her No audible stridor or wheezing Urinary Catheter Management: Davis: Cath Placed During This Visit: yes Reason for Continuing Indwelling Catheter: Accurate Measurement of Urinary Output in Critically Ill Patients Urinary Catheter Date of Insertion: 12/28/21 Urinary Catheter Time of Insertion: 08:28 Data : 12/30/21 03:12 12/30/21 03:12 Micro: Microbiology 12/28/21 16:15 MRSA Culture - Final Nose 12/28/21 16:15 Gram Stain - Final Sputum - Expectorated Sputum Sputum Culture - Preliminary Strep agalactiae - (group b) 12/28/21 10:20 Blood Culture - Preliminary Blood NEGATIVE TO DATE 12/28/21 10:05 Blood Culture - Preliminary Blood NEGATIVE TO DATE 12/29/21 08:25 Bacterial Antigens - Final Urine,Voided A&P Assessment and plan (1) COPD with acute exacerbation: Status: Acute (2) Anemia: Status: Acute (3) Acute encephalopathy: Status: Acute (4) Aspiration pneumonitis: Status: Acute (5) COVID-19: Status: Acute (6) Acute respiratory failure: Status: Acute (7) Hypertension: Status: Acute (8) COPD (chronic obstructive pulmonary disease): Status: Acute (9) History of right below knee amputation: Status: Acute (10) Altered mental status: Status: Acute (11) Medication side effects: Status: Acute Plan Acute on chronic hypoxia related to COVID-19 with underlying COPD Patient is an active smoker Currently doing well on 4 L nasal cannula, did not require BiPAP CTA chest ruled out PE No signs of consolidation Groundglass opacity Will de-escalate antibiotics tomorrow if leukocytosis keep trending down, Continue remdesivir and Decadron High D-dimer to light related to COVID-19 inflammation Metabolic encephalopathy related to COVID-19: Improved no signs of stroke Patient has been afebrile She is denying alcohol abuse Acute CHF exacerbation, preserved action fraction Cut back on her Lasix Adequate diuresis EF 71% H enlargement Moderate mitral regurgitation Abnormal transaminases, positive hepatitis C antibodies, she will need outpatient hepatitis C treatment Possibility for medication overdose Accidental overdose, no active homicidal or suicidal ideation She is showing signs of improvement, she can be taken off isolation, her symptoms started on December 26 Chronic anemia No active decompensation Recent clavicle fracture, medical management Full code Lovenox for DVT prophylaxis Drug screen positive Attestations Medical Necessity Statement*: She can be transferred out of ICU Critical Care Time: 20 Coding Level of Care Code Acute Machine Fastener for g Fwd Diagnoses COPD with acute exacerbation J44.1 Anemia D64.9 Acute encephalopathy G93.40 Aspiration pneumonitis J69.0 COVID-19 U07.1 Acute respiratory failure J96.00 Hypertension I10 COPD (chronic obstructive pulmonary disease) J44.9 History of right below knee amputation Z89.511 Altered mental status R41.82 Medication side effects T88.7XXA
[2021-12-30] MEDS: dexamethasone 10 mg/mL INJ 6 MG IVP (13:00)
[2021-12-30] MEDS: enoxaparin 40 mg/0.4 mL Syringe SUBCUT (15:52)
[2021-12-30] MEDS: vancomycin 1,500 MG/300 ML PIGGYBACK 150 MG IV (15:52)
--- NOTE | 2021-12-30 18:45 | PC.NURSE ---
Report called to [facility]. Patient and belongings taken to 275-1. Oriented to room and call light.
[2021-12-30] MEDS: lanolin oint 7 gm 1 APPLIC TOPICAL (20:04)
[2021-12-30 20:28] LABS: HEP C RNA Viral Load Quant <1.18 NOT DETECTED Log IU/mL (NOT DETECTED); HEP C RNA Viral Load Quant <15 NOT DETECTED IU/mL (NOT DETECTED)
[2021-12-30] MEDS: duloxetine 30 mg Capsule PO (20:41)
[2021-12-31] VITALS (16 sets, daily range): BP systolic 117–161; BP diastolic 63–86; PULSE 86–110; RESP 16–24; TEMP 36.5–37.1; O2SAT 87–98
[2021-12-31] MEDS: ipratropium-albuterol 3 mL Neb INHALATION ×5 (03:09→20:52)
[2021-12-31] MEDS: remdesivir 100 MG in sodium chloride 0.9% (100 ml) 80 ML IV (04:51)
[2021-12-31 05:05] LABS: Blood Urea Nitrogen 11 mg/dL (8-23); Calcium 8.9 mg/dL (8.5-10.5); Carbon Dioxide 25 mmol/L (22-29); Chloride 100 mmol/L (98-107); Glomerular Filtration Rate 161.7 mL/min (90-130); Glucose 112 mg/dL (65-115); Osmolality Calculated 288 mOsm/kg (285-295); Sodium 139 mmol/L (136-145)
[2021-12-31 05:15] LABS: Anion Gap 18.4 (5-19); Potassium 4.4 mmol/L (3.5-5.1)
[2021-12-31 06:18] LABS: Basophils % 0.2 %; Eosinophils % 0.1 %; Hematocrit 25.8 % (37.0-47.0); Hemoglobin 8.6 g/dL (11.5-15.3); Lymphocytes # 1.2 10^3/uL (0.8-4.8); Lymphocytes % 9.1 %; Mean Corpuscular HGB Conc 33.3 g/dL (30.0-36.0); Mean Corpuscular Hemoglobin 32.8 pg (28.0-34.0); Mean Corpuscular Volume 98.5 fl (81-99); Mean Platelet Volume 8.8 fL (7.4-10.4); Monocytes # 1.1 10^3/uL (0.2-0.9); Monocytes % 8.4 %; Neutrophils # 10.37 10^3/uL (1.8-7.7); Neutrophils % 80.3 %; Nucleated Red Blood Cells % 0 %; Platelet Count 341 10^3/cmm (130-400); Red Blood Count 2.62 10^6/uL (4.1-5.3); Red Cell Distribution Width 12.5 % (12.1-15.1); White Blood Count 12.9 10^3/uL (4.0-10.0)
[2021-12-31] MEDS: budesonide 0.5 mg/2 mL Neb INHALATION ×2 (07:38→20:52)
[2021-12-31] MEDS: FUROsemide 20 mg Tablet PO (08:18)
[2021-12-31] MEDS: multivitamin therapeutic Tablet 1 TAB PO (08:18)
[2021-12-31] MEDS: quetiapine 25 mg Tablet 50 MG PO ×2 (08:18→20:46)
[2021-12-31] MEDS: pantoprazole DR 40 mg Tablet PO (08:18)
[2021-12-31] MEDS: gabapentin 300 mg Capsule PO ×3 (08:18→20:46)
[2021-12-31] MEDS: piperacillin-tazobactam 3.375 GM in sodium chloride 0.9% (plus) 50 ML IV (08:19)
--- NOTE | 2021-12-31 09:48 | PC.SOCIAL ---
IMM update IMM updated with patient. Verbalized an understanding. Copy Pg 2 provided. Initialled, dated, timed, and placed in chart.
[2021-12-31] MEDS: amoxicillin-clav 875-125 mg Tablet 1 TAB PO ×2 (10:24→17:50)
[2021-12-31] MEDS: hydroCHLOROthiazide 25 mg Tablet 12.5 MG PO (10:25)
--- NOTE | 2021-12-31 11:06 | P.PN_ITS ---
Subjective Subjective: Patient experiencing diarrhea No active complaints other than diarrhea She might get excepted at [facility] tomorrow Discontinue isolation Check C. difficile Discontinue Davis catheter De-escalate antibiotics to p.o. Augmentin Leukocytosis improving Afebrile Vitals/I&O/Wt Last Vital Signs Temp 97.7 F 12/31/21 04:00 Pulse 98 12/31/21 07:58 Resp 19 H 12/31/21 07:58 BP 161/86 12/31/21 07:58 Pulse Ox 98 12/31/21 07:58 12/30/21 12/31/21 12/31/21 22:59 06:59 14:59 Intake Total 1560 / 2370 150 / 2520 Output Total 3350 / 3350 700 / 4050 Balance -1790 / -980 -550 / -1530 Weight last 48 hrs Weight 68.447 kg Weight 69.763 kg Physical Exam Narrative: Patient is laying supine No active chest pain or shortness of breath Saturating 100% on room air Abdomen soft Hyperactive bowel sounds No signs of edema He she was able to lay supine Nonfocal neuro exam Awake and alert Urinary Catheter Management: Davis: Cath Placed During This Visit: yes, but has since been removed by the nurse Reason for Continuing Indwelling Catheter: Accurate Measurement of Urinary Output in Critically Ill Patients Urinary Catheter Date of Insertion: 12/28/21 Urinary Catheter Time of Insertion: 08:28 Date Urinary Catheter Removed: 12/31/21 Time Urinary Catheter Discontinued: 09:47 Data : 12/31/21 06:10 12/31/21 04:10 Micro: Microbiology 12/28/21 16:15 Gram Stain - Final Sputum - Expectorated Sputum Sputum Culture - Final Strep agalactiae - (group b) A&P Assessment and plan (1) COPD with acute exacerbation: Status: Acute (2) Acute encephalopathy: Status: Acute (3) Aspiration pneumonitis: Status: Acute (4) COVID-19: Status: Acute (5) Acute respiratory failure: Status: Acute (6) Hypertension: Status: Acute (7) COPD (chronic obstructive pulmonary disease): Status: Acute (8) History of right below knee amputation: Status: Acute (9) Altered mental status: Status: Acute (10) Medication side effects: Status: Acute Plan Diarrhea Check C. difficile Discontinue Davis catheter Aspiration pneumonitis, discontinue IV antibiotics, switch to Augmentin he she has been afebrile cultures negative to date DVT prophylaxis Lovenox Hypertensive: Start losartan, hydrochlorothiazide combination Continue Protonix for GI prophylaxis She might be able to go to [facility] on Saturday Full code Dysphagia diet Check magnesium and phosphorus tomorrow COVID-19 pneumonia: DC isolation, last pack of remdesivir tomorrow Attestations Medical Necessity Statement*: Discharge tomorrow Time Spent in Patient Care: 30 Coding Level of Care Code Acute Nursing Clinical Director for g Fwd Diagnoses COPD with acute exacerbation J44.1 Acute encephalopathy G93.40 Aspiration pneumonitis J69.0 COVID-19 U07.1 Acute respiratory failure J96.00 Hypertension I10 COPD (chronic obstructive pulmonary disease) J44.9 History of right below knee amputation Z89.511 Altered mental status R41.82 Medication side effects T88.7XXA
[2021-12-31] MEDS: amlodipine 10 mg Tablet PO (11:26)
[2021-12-31] MEDS: cyclobenzaprine 10 mg Tablet 5 MG PO ×2 (11:33→19:33)
[2021-12-31] MEDS: acetaminophen 325 mg Tablet 650 MG PO ×2 (15:11→19:32)
[2021-12-31] MEDS: enoxaparin 40 mg/0.4 mL Syringe SUBCUT (15:12)
[2021-12-31] MEDS: duloxetine 30 mg Capsule PO (20:46)
[2022-01-01] VITALS (11 sets, daily range): BP systolic 118–166; BP diastolic 63–99; PULSE 84–100; RESP 15–17; TEMP 36.8; O2SAT 90–98
--- NOTE | 2022-01-01 02:50 | PC.NURSE ---
PT CARE CHANGE Assumed care of pt at this time. Has been moved to room 253-2
[2022-01-01 04:50] LABS: Basophils % 0.3 %; Eosinophils # 0.2 10^3/uL (0.0-0.8); Eosinophils % 1.6 %; Hemoglobin 10.6 g/dL (11.5-15.3); Lymphocytes # 1.8 10^3/uL (0.8-4.8); Lymphocytes % 16.9 %; Mean Corpuscular HGB Conc 32.1 g/dL (30.0-36.0); Mean Corpuscular Hemoglobin 32.7 pg (28.0-34.0); Mean Corpuscular Volume 101.9 fl (81-99); Monocytes # 1.4 10^3/uL (0.2-0.9); Monocytes % 13.3 %; Neutrophils # 6.67 10^3/uL (1.8-7.7); Neutrophils % 63.2 %; Nucleated Red Blood Cells % 0.2 %; Platelet Count 442 10^3/cmm (130-400); Red Blood Count 3.24 10^6/uL (4.1-5.3); Red Cell Distribution Width 12.6 % (12.1-15.1); White Blood Count 10.6 10^3/uL (4.0-10.0)
[2022-01-01 05:09] LABS: Anion Gap 15.5 (5-19); Blood Urea Nitrogen 7 mg/dL (8-23); Calcium 9.3 mg/dL (8.5-10.5); Carbon Dioxide 28 mmol/L (22-29); Chloride 95 mmol/L (98-107); Glomerular Filtration Rate 161.7 mL/min (90-130); Glucose 84 mg/dL (65-115); Magnesium 1.9 mg/dL (1.7-2.3); Osmolality Calculated 277 mOsm/kg (285-295); Phosphorus 4.1 mg/dL (2.5-4.5); Potassium 3.5 mmol/L (3.5-5.1); Sodium 135 mmol/L (136-145)
[2022-01-01] MEDS: remdesivir 100 MG in sodium chloride 0.9% (100 ml) 80 ML IV (05:52)
[2022-01-01] MEDS: ipratropium-albuterol 3 mL Neb INHALATION ×2 (07:39→11:06)
[2022-01-01] MEDS: budesonide 0.5 mg/2 mL Neb INHALATION (07:39)
[2022-01-01] MEDS: quetiapine 25 mg Tablet 50 MG PO (09:30)
[2022-01-01] MEDS: amoxicillin-clav 875-125 mg Tablet 1 TAB PO (09:30)
[2022-01-01] MEDS: pantoprazole DR 40 mg Tablet PO (09:31)
[2022-01-01] MEDS: losartan 50 mg Tablet 100 MG PO (09:31)
[2022-01-01] MEDS: multivitamin therapeutic Tablet 1 TAB PO (09:31)
[2022-01-01] MEDS: amlodipine 10 mg Tablet PO (09:31)
[2022-01-01] MEDS: gabapentin 300 mg Capsule PO (09:32)
[2022-01-01] MEDS: hydroCHLOROthiazide 25 mg Tablet 12.5 MG PO (09:32)
--- NOTE | 2022-01-01 11:35 | PM.DCS ---
Discharge Providers Date of Admission: 12/28/21 11:31 Date of Discharge: January 01, 2022 Attending Provider at Admission: Galen Wen MD Attending Provider at Discharge: Lenny Oakes MD Diagnoses at Discharge Discharge Diagnosis (1) COPD with acute exacerbation: Status: Acute (2) Acute encephalopathy: Status: Acute (3) Aspiration pneumonitis: Status: Acute (4) COVID-19: Status: Acute (5) Acute respiratory failure: Status: Acute (6) Hypertension: Status: Acute (7) COPD (chronic obstructive pulmonary disease): Status: Acute (8) History of right below knee amputation: Status: Acute (9) Altered mental status: Status: Acute (10) Medication side effects: Status: Acute Reason for Visit Reason for Visit: AMS Hospital Course Hospital Course 61-year-old female who was admitted for management of COVID-19 related pneumonia initially there was concern for aspiration pneumonitis, she was kept on broad-spectrum antibiotics, MRSA PCR negative, she remained hemodynamically stable, afebrile, leukocytosis improved her antibiotics were de-escalated to Augmentin. Cultures remain negative to date. Hemoglobin remained stable. Wheezing improved. Initially she was requiring 3 to 4 L of oxygen however we were able to successfully wean her down to room air. CBC BMP unremarkable. [facility] after home O2 eval. C. difficile diarrhea ruled out. For hypertension we continued her antihypertensive regimen which did not make her normotensive, will optimize her antihypertensive regimen at the time of discharge. Magnesium and phosphorus repleted. She does not need isolation for COVID-19, she finished remdesivir and Decadron regimen. Physical Exam Narrative: Pleasant cooperative female Currently saturating well on room air Abdomen soft Euvolemic Nonfocal neuro exam Pleasant and cooperative Able to walk on her own Urinary Catheter Management: Davis: Cath Placed During This Visit: yes, but has since been removed by the nurse Reason for Continuing Indwelling Catheter: Accurate Measurement of Urinary Output in Critically Ill Patients Urinary Catheter Date of Insertion: 12/28/21 Urinary Catheter Time of Insertion: 08:28 Date Urinary Catheter Removed: 12/31/21 Time Urinary Catheter Discontinued: 09:47 Discharge Data Studies Completed and Pending Completed Studies During Hospitalization Category Date Time Status CT head wo con* [id number] Stat Cat Scan 12/28/21 07:34 Completed CTA chest [CT angio chest PE protcl [id number]] Routine Cat Scan 12/29/21 09:09 Completed XR chest 1V portable [id number] Routine Exams 12/29/21 07:00 Completed XR chest 1V portable [id number] Stat Exams 12/28/21 07:17 Completed CV. echo complete* [id number] Routine Ultrasound 12/29/21 09:09 Completed Pending at discharge Category Date Time Status Blood Culture Stat Lab 12/28/21 10:05 Results Legionella Antibody Routine Lab 12/29/21 04:05 Stop Req Radiology Impressions Head CT 12/28/21 07:34 IMPRESSION: 1. No evidence of intracranial hemorrhage or mass effect. 2. Mild small vessel changes. Mild parenchymal volume loss. 3. No acute intracranial findings and no changes compared to previous December 26, 2021. Chest X-Ray 12/29/21 07:00 IMPRESSION: Relatively stable abnormal chest as above. Chest CTA 12/29/21 09:09 IMPRESSION: 1. Somewhat limited exam due to patient respiratory motion. No gross evidence of pulmonary embolism. 2. Commonly reported imaging features of COVID-19 pneumonia are present. Other processes such as influenza pneumonia and organizing pneumonia, as can be seen with drug toxicity and connective tissue disease, can cause a similar imaging pattern. 3. Small bilateral pleural effusions. Laboratory Results WBC 10.6 10^3/uL (4.0-10.0) H 01/01/22 04:05 Corrected WBC Cancelled 12/31/21 04:10 RBC 3.24 10^6/uL (4.1-5.3) L 01/01/22 04:05 Hgb 10.6 g/dL (11.5-15.3) L 01/01/22 04:05 Hct 33.0 % (37.0-47.0) L 01/01/22 04:05 MCV 101.9 fl (81-99) H 01/01/22 04:05 MCH 32.7 pg (28.0-34.0) 01/01/22 04:05 MCHC 32.1 g/dL (30.0-36.0) 01/01/22 04:05 RDW 12.6 % (12.1-15.1) 01/01/22 04:05 Plt Count 442 10^3/cmm (130-400) H 01/01/22 04:05 MPV 9.0 fL (7.4-10.4) 01/01/22 04:05 Gran % Cancelled 12/31/21 04:10 Neut % (Auto) 63.2 % 01/01/22 04:05 Lymph % (Auto) 16.9 % 01/01/22 04:05 Coles % (Auto) 13.3 % 01/01/22 04:05 Eos % (Auto) 1.6 % 01/01/22 04:05 Baso % (Auto) 0.3 % 01/01/22 04:05 Neut # (Auto) 6.67 10^3/uL (1.8-7.7) 01/01/22 04:05 Lymph # (Auto) 1.8 10^3/uL (0.8-4.8) 01/01/22 04:05 Coles # (Auto) 1.4 10^3/uL (0.2-0.9) H 01/01/22 04:05 Eos # (Auto) 0.2 10^3/uL (0.0-0.8) 01/01/22 04:05 Baso # (Auto) 0.0 10^3/uL (0.0-0.1) 01/01/22 04:05 Absolute Gran (auto) Cancelled 12/31/21 04:10 Nucleated RBC % (auto) 0.2 % 01/01/22 04:05 Nucleated RBCs # 0.0 /100WBC 01/01/22 04:05 D-Dimer 1.36 ug/mIFEU (0-0.59) H 12/29/21 04:05 Specimen Type Arterial 12/28/21 07:20 Sample Site Radial, left 12/28/21 07:20 ABG pH 7.42 (7.35-7.45) 12/28/21 07:20 ABG pCO2 44.8 mmHg (35-45) 12/28/21 07:20 ABG pO2 92.8 mmHg (80.0-100.0) 12/28/21 07:20 ABG HCO3 29.2 mmol/L (22-26) H 12/28/21 07:20 ABG O2 Saturation 97.0 12/28/21 07:20 ABG Base Excess 4.2 mmol/L (-2.0-2.0) H 12/28/21 07:20 Kavon Test Pos 07/21/22 07:20 A-a O2 Gradient 13.0 mmHg (5-10) H 12/28/21 07:20 Hematocrit 29.7 % (37-47) L 12/28/21 07:20 Hgb O2 Saturation 94.3 % (95-100) L 12/28/21 07:20 Carboxyhemoglobin 1.8 %THgb (0.4-20.1) 12/28/21 07:20 Methemoglobin 1.0 % (0.4-1.5) 12/28/21 07:20 Total Hemoglobin 9.7 g/dL (12-16) L 12/28/21 07:20 Sodium 131.0 mmol/L (131-143) 12/28/21 07:20 Potassium 4.1 mmol/L (3.5-5.0) 12/28/21 07:20 Glucose 92.0 mg/dL (70-115) 12/28/21 07:20 Ionized Calcium 1.1 mmol/L (1.1-1.4) 12/28/21 07:20 O2 Delivery Device Bipap 12/28/21 07:20 FiO2 35.0 % 12/28/21 07:20 Telephone Service Representative ID Cak 12/28/21 07:20 Sodium 135 mmol/L (136-145) L 01/01/22 04:05 Potassium 3.5 mmol/L (3.5-5.1) 01/01/22 04:05 Chloride 95 mmol/L (98-107) L 01/01/22 04:05 Carbon Dioxide 28 mmol/L (22-29) 01/01/22 04:05 Anion Gap 15.5 (5-19) 01/01/22 04:05 BUN 7 mg/dL (8-23) L 01/01/22 04:05 Creatinine 0.4 mg/dL (0.5-0.9) L 01/01/22 04:05 GFR Calculation 161.7 mL/min (90-130) H 01/01/22 04:05 Glucose 84 mg/dL (65-115) 01/01/22 04:05 POC Glucose 99 mg/dL (70-110) 12/28/21 07:25 Calculated Osmolality 277 mOsm/kg (285-295) L 01/01/22 04:05 Lactic Acid 1.0 mmol/L (0.5-2.2) 12/28/21 10:05 Calcium 9.3 mg/dL (8.5-10.5) 01/01/22 04:05 Phosphorus 4.1 mg/dL (2.5-4.5) 01/01/22 04:05 Magnesium 1.9 mg/dL (1.7-2.3) 01/01/22 04:05 Iron 9 ug/dL (37-145) L 12/28/21 11:50 TIBC 257 mcg/dl 12/28/21 11:50 % Saturation 3.5 % (20-50) L 12/28/21 11:50 Unsat Iron Binding 248 ug/dL (112-347) 12/28/21 11:50 Ferritin 130 ng/mL (15-150) 12/28/21 11:50 Total Bilirubin 0.2 mg/dL (0.15-1.2) 12/30/21 03:12 AST 35 U/L (0-32) H 12/30/21 03:12 ALT 46 U/L (0-33) H 12/30/21 03:12 Alkaline Phosphatase 151 IU/L (35-105) H 12/30/21 03:12 Creatine Kinase 126 U/L (26-192) 12/28/21 11:50 Troponin T Baseline 14 ng/L (0-10) H 12/28/21 10:05 Troponin T 120 Minute 14.90 ng/L (0-10) H 12/28/21 11:50 Delta Troponin T 0.90 ABS# (0-10) 12/28/21 11:50 Troponin T Hi Sens 6Hr 9.11 ng/L (0-10) 12/28/21 16:14 Troponin T Hi Sens 6Hr Delta 5.35 ng/L (0-12) 12/28/21 16:14 C-Reactive Protein 213.0 mg/L (0.0-4.9) H 12/30/21 03:12 NT-Pro-B Natriuret Pep 2212 pg/mL (0-125) H 12/29/21 04:05 Total Protein 6.1 g/dL (6.6-8.7) L 12/30/21 03:12 Albumin 3.1 g/dL (3.5-5.2) L 12/30/21 03:12 Globulin 3.0 g/dL (1.3-4.6) 12/30/21 03:12 Lipase 9 U/L (13-60) L 12/28/21 11:50 Vitamin B12 340 pg/mL (232-1245) 12/28/21 11:50 Folate > 20.0 ng/mL (4.8-37.3) 12/28/21 11:40 Procalcitonin 1.78 ng/mL (0-0.5) H 12/29/21 04:05 TSH 0.64 uIU/mL (0.27-4.20) 12/28/21 11:50 Urine Color Yellow (Yellow) 12/28/21 07:44 Urine Appearance Clear (CLEAR) 12/28/21 07:44 Urine pH 6 (5-7) 12/28/21 07:44 Ur Specific [place] 1.005 (1.005-1.030) 12/28/21 07:44 Urine Protein Neg (Negative) 12/28/21 07:44 Urine Glucose (UA) Norm (Normal) 12/28/21 07:44 Urine Ketones Negative (Negative) 12/28/21 07:44 Urine Blood Neg (Negative) 12/28/21 07:44 Urine Nitrate Negative (Negative) 12/28/21 07:44 Urine Bilirubin Neg (Negative) 12/28/21 07:44 Urine Urobilinogen Norm mg/dL (Negative) 12/28/21 07:44 Ur Leukocyte Esterase Negative (Negative) 12/28/21 07:44 Vancomycin Trough 6.7 ug/mL (10-15) L 12/30/21 03:12 Salicylates < 0.3 mg/dL (3-10) L 12/28/21 11:50 Urine Opiates Screen Positive ng/mL (Negative) H 12/28/21 07:44 Acetaminophen < 5.0 ug/mL (10-30) L 12/28/21 11:50 Ur Barbiturates Screen Negative ng/mL (Negative) 12/28/21 07:44 Ur Phencyclidine Scrn Negative ng/mL (Negative) 12/28/21 07:44 Ur Amphetamines Screen Negative ng/mL (Negative) 12/28/21 07:44 U Benzodiazepines Scrn Positive ng/mL (Negative) H 12/28/21 07:44 Urine Cocaine Screen Negative ng/mL (Negative) 12/28/21 07:44 U Marijuana (THC) Screen Negative ng/mL (Negative) 12/28/21 07:44 Ethyl Alcohol < 10 mg/dL (0-10) 12/28/21 11:50 Serum Ketones Negative (Negative) 12/28/21 10:05 Coronavirus 229E (PCR) Not detected (NOT DETECT) 12/28/21 07:55 Hepatitis A IgM Ab Non-reactive (Nonreactive) 12/29/21 04:05 Hep Bs Antigen Non-reactive (Nonreactive) 12/29/21 04:05 Hep B Core IgM Ab Non-reactive (Nonreactive) 12/29/21 04:05 Hepatitis C Antibody Reactive (Nonreactive) H 12/29/21 04:05 HCV RNA (PCR) IUs/ml <1.18 not detected Log IU/mL (NOT DETECTED) 12/29/21 04:05 HCV RNA (PCR) IU log10 <15 not detected IU/mL (NOT DETECTED) 12/29/21 04:05 SARS-CoV-2 (PCR) Detected (NOT DETECT) A 12/28/21 07:55 Vitals Last Vital Signs Temp 98.2 F 01/01/22 07:57 Pulse 95 01/01/22 11:08 Resp 17 01/01/22 11:00 BP 166/99 01/01/22 09:31 Pulse Ox 96 01/01/22 11:00 Discharge Plan Discharge Patient Disposition: Home Condition: Stable Prescriptions: New amoxicillin-pot clavulanate 875-125 mg Tablet 1 tab PO BID Qty: 5 0RF Continued cyclobenzaprine 10 mg tablet 10 mg PO BID 0RF alprazolam 1 mg tablet 1 mg PO BID 0RF gabapentin 400 mg capsule 400 mg PO TID 0RF omeprazole 40 mg capsule,delayed release(DR/EC) 40 mg PO DAILY 0RF dicyclomine 20 mg tablet 20 mg PO BID 0RF promethazine 25 mg tablet 25 mg PO BID 0RF acetaminophen-codeine 300-60 mg tablet 1 tab PO Q6H PRN (Reason: Pain) 0RF albuterol sulfate 90 mcg/actuation HFA aerosol inhaler 1 puff INHALATION Q4H 0RF oxybutynin chloride 5 mg tablet 5 mg PO BEDTIME 0RF metoclopramide HCl 10 mg tablet 10 mg PO QID 0RF Rx Instructions: before meals and hs memantine 5 mg tablet 5 mg PO BID 0RF Spiriva with HandiHaler 18 mcg capsule, w/inhalation device 1 cap INHALATION DAILY 0RF duloxetine 30 mg capsule,delayed release(DR/EC) 30 mg PO BEDTIME 0RF losartan-hydrochlorothiazide 100-12.5 mg tablet 1 tab PO DAILY 0RF Changed quetiapine 100 mg tablet 100 mg PO BEDTIME Qty: 0 0RF Discontinued prednisone 10 mg tablet 10 mg PO DAILY 0RF Discharge Orders: Discharge Order (Routine); Ordered 01/01/22 Ordered By: Lenny Oakes Discharge Diet: Cardiac Discharge Activity: Increase activity as tolerated Patient Instructions: Opioid Safety Discharge Attestations Time Spent in Discharge Care*: less than 30 min Quality Metrics Clinical Quality Measures [ No reported AMI, CVA or VTE this stay] Coding Level of Care Code Acute Chg FW DC note Diagnoses COPD with acute exacerbation J44.1 Acute encephalopathy G93.40 Aspiration pneumonitis J69.0 COVID-19 U07.1 Acute respiratory failure J96.00 Hypertension I10 COPD (chronic obstructive pulmonary disease) J44.9 History of right below knee amputation Z89.511 Altered mental status R41.82 Medication side effects T88.7XXA
[2022-01-01] MEDS: cyclobenzaprine 10 mg Tablet 5 MG PO (12:46)
[2022-01-01] MEDS: acetaminophen 325 mg Tablet 650 MG PO (14:09)
[2022-01-02 18:19] LABS: Legionella Antibody <1:256 TITER
== END 2022-01-01 12:45 | disposition home or self-care (01) | DRG 177 ==
LOC: ER 07:34 → ICU 11:52 → MEDSURG 12-30 18:45
PROVIDERS: Admitting Provider Internal Medicine; Emergency Provider Family Medicine; Visit Provider Internal Medicine
DX: U07.1 COVID-19 (principal); G93.41 Metabolic encephalopathy; I50.31 Acute diastolic (congestive) heart failure; J12.82 Pneumonia due to coronavirus disease 2019; J96.21 Acute and chronic respiratory failure with hypoxia; J44.1 Chronic obstructive pulmonary disease with (acute) exacerbation; F41.8 Other specified anxiety disorders; K21.9 Gastro-esophageal reflux disease without esophagitis; I11.0 Hypertensive heart disease with heart failure; Z89.511 Acquired absence of right leg below knee; F17.200 Nicotine dependence, unspecified, uncomplicated; D50.9 Iron deficiency anemia, unspecified; S42.001D Fracture of unspecified part of right clavicle, subsequent encounter for fracture with routine healing; X58.XXXD Exposure to other specified factors, subsequent encounter; F10.11 Alcohol abuse, in remission; Z79.51 Long term (current) use of inhaled steroids; R19.7 Diarrhea, unspecified; T42.4X5A Adverse effect of benzodiazepines, initial encounter; T40.2X5A Adverse effect of other opioids, initial encounter; I34.0 Nonrheumatic mitral (valve) insufficiency; F32.A Depression, unspecified
CPT/HCPCS: 36415; 36416; 36600; 51702; 70450; 71045; 71275; 80048; 80051; 80053; 80074; 80202; 80306; 80307; 81003; 82009; 82140; 82274; 82330; 82550; 82607; 82728; 82746; 82805; 82962; 83540; 83550; 83605; 83690; 83735; 83880; 84100; 84145; 84443; 84484; 85025; 85378; 86140; 86403; 86713; 87040; 87070; 87205; 87493; 87522; 87635; 87641; 92507; 92523; 92526; 92610; 93005; 93306; 94640; 94660; 94760; 96360; 96361; 96365; 96367; 96372; 96375; 99284; 99285; 99291; J1100; J1650; J1756; J1940; J1956; J2060; J2310; J2543; J3370; J3411; J7030; J7050; J7626; Q9967